=== PATIENT | female | born 1975 | race Caucasian/White ===

== ENCOUNTER → 2016-05-20 | Outpatient (REF) | payer BC ==
[2016-05-20 11:24] LABS: MEAN CORPUSCULAR HEMOGLOBIN 27.5 pg (27.0-33.0); MEAN CORPUSCULAR HGB CONC 30.9 g/dl (32.0-36.5); RED CELL DISTRIBUTION WIDTH 14.9 % (11.5-14.5); WHITE BLOOD COUNT 3.8 K/mm3 (4.0-10.0)
[2016-05-20 11:55] LABS: CONTROL LINE INT CTR LINE PRESENT; HIV SCRN NEGATIVE (NEGATIVE); HIV SCRN1 NEGATIVE (NEGATIVE)
== END ==
LOC: M SFHCLERA 08:57
PROVIDERS: ATTEND Physician Assistant
DX: D50.9 Iron deficiency anemia, unspecified (principal); Z20.9 Contact with and (suspected) exposure to unspecified communicable disease; E03.9 Hypothyroidism, unspecified

== ENCOUNTER 2016-05-23 07:52 | Emergency (ER) | payer OTHER, BC ==
[2016-05-23] MEDS ORDERED: TETRACAINE 0.5% OPHTH SOLN 4ML As Ordered ONE (08:07)
[2016-05-23] MEDS ORDERED: ERYTHROMYCIN OPHTH OINT As Ordered ONE (08:16)
--- NOTE | 2016-05-23 08:25 | EDDOCDS ---
Nurse's Notes [facility] Name: Adela Valladares Age: 41 yrs Sex: Female : 1975 Arrival Date: 05/23/2016 Time: 07:52 Bed Triage 1 Private MD: Diagnosis: Conjunctivitis-chemical conjunctivitis right eye, Purell exposure Presentation: 05/23 07:55 Presenting complaint: Patient states: got purell in right eye. did rinse for about 15 srm mins. incident occurred 20 mins ago. has had it closed due to burning. Adult Sepsis Screening: The patient does not have new or worsening altered mentation. Patient's respiratory rate is less than 22. Systolic blood pressure is greater than 100. Patient has a qSOFA score of 0- Negative Sepsis Screen. Suicide/Homicide risk assessment- the patient denies having any suicidal and/or homicidal ideations and does not present with any other emotional, behavioral or mental health complaints. 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 Transition of care: patient was not received from another setting of care. 07:55 Acuity: GRETA Level 4 srm 07:55 Method Of Arrival: Walkin/Carried/Asstd [facility] Triage Assessment: 07:57 General: Appears uncomfortable, Behavior is crying. Pain: Pain currently is 9 out of 10 srm on a pain scale. 07:57 HIV screening NA for this visit Offered previously. 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 levothyroxine 137 mcg Oral tab 1 tab once daily - PMHx: Thyroid problem; - PSHx: Tonsillectomy; Adenoidectomy; Carpal Tunnel Repair- Bilateral; Gastric Bypass; bladder lift; Hysterectomy; Tubal ligation; - Social history: Smoking status: Patient states was never smoker of tobacco. No barriers to communication noted, The patient speaks fluent Canadian, Speaks appropriately for age. - Family history: Not pertinent. - : The pt / caregiver states he / she is not on anticoagulants. Home medication list is obtained from the patient. - Exposure Risk Screening:: None identified. Screenin:14 Screening information is obtained from the patient. Fall risk: No risks identified. srm Assistance ADL's: requires no assistance with activities of daily living. Abuse/DV Screen: The patient / caregiver reports he/she is: not in a situation that causes fear, pain or injury. Nutritional screening: No deficits noted. Advance Directives: Currently, there is no health care proxy. There is no active DNR order. home support is adequate. Assessment: 08:14 General: Appears uncomfortable, Behavior is appropriate for age, cooperative, crying. srm EENT: Sclera/Cornea are reddened in outer aspect of conjuctiva of right eye, iris of right eye and inner aspect of conjuctiva of right eye. Respiratory: No deficits noted. GI: No deficits noted. Vital Signs: 07:57 BP 133 / 72; Pulse 75; Resp 20; Temp 96.6; Pulse Ox 99% on R/A; Weight 68.04 kg (R); srm Height 5 ft. 2 in. (157.48 cm) (R); 07:57 Body Mass Index 27.44 (68.04 kg, 157.48 cm) [facility] Vitals: 07:57 Log In Time: May 23, 2016 at 07:54. srm Visual Acuity: 08:14 Left Eye Visual acuity 20/20, ; Right Eye Visual acuity 20/50, ; Both Eyes Visual srm acuity 20/25; Without Lenses; ED Course: 07:53 Patient visited by Ashley Tolliver Reg. hs2 07:53 Patient moved to Waiting hs2 07:56 Triage Initiated srm 07:59 Anni Miguel PA-C is PHCP. dt4 07:59 Raissa Simmons MD is Attending Physician. dt4 07:59 Patient visited by Anni Miguel PA-C. dt4 07:59 Patient moved to Triage 1 srm 08:04 Poison Control notified at 08:04 recommendations reviewed with irrigation for 15 pml minutes is sufficient. tetracaine not contraindicated. no significant adverse reactions to exposure. 08:14 [facility] is Referral Physician. dt4 08:15 Patient visited by Jordana Grande RN. srm 08:23 The patient / caregiver is instructed regarding the plan of care and ED course. Patient srm has correct armband on for positive identification. 08:23 No IV's were initiated during this patient's visit. No procedures done that require srm assistance. Administered Medications: 08:09 Drug: Tetracaine (PF) 2 drps [tetracaine HCl (PF) 0.5 % eye drops (2 drps)] {Note: srm administered by PA.} Route: Ophthalmic; Site: right eye; 08:20 Drug: erythromycin 0.5 inches [erythromycin 5 mg/gram (0.5 %) eye ointment (0.5 srm inches)] Route: Ophthalmic; Site: right eye; Order Results: There are currently no results for this order. Outcome: 08:16 Discharge ordered by Provider. dt4 08:23 Discharge Assessment: Patient awake, alert and oriented x 3. No cognitive and/or srm functional deficits noted. Patient verbalized understanding of disposition instructions. patient administered narcotics - no. The following High Risk Discharge criteria are identified: None. Discharged to home ambulatory. Condition: good Condition: stable. Discharge instructions given to patient, Instructed on discharge instructions, follow up and referral plans. medication usage, Demonstrated understanding of instructions, medications, Pt was receptive of discharge instructions/ teaching. Prescriptions given X 1, Work note provided to patient. No special radiology studies were completed. Property sent home with patient. 08:23 Patient left the ED. srm Signatures: Jordana Grande, RN RN Leeanna Cross RN RN pml Tschudi, Diane, PA-C PAAdrian dt4 Ashley Tolliver, Reg Reg hs2 MTDCarmelita
--- NOTE | 2016-05-23 08:25 | EDDOCDS ---
Physician Documentation [facility] Name: Adela Valladares Age: 41 yrs Sex: Female : 1975 Arrival Date: 05/23/2016 Time: 07:52 Bed Triage 1 Private MD: Disposition: 05/23/16 08:16 Discharged to Home/Self Care. Impression: Conjunctivitis - chemical conjunctivitis right eye, Purell exposure. - Condition is Stable. - Discharge Instructions: Conjunctivitis, Chemical. - Prescriptions for Erythromycin 5 mg/gram (0.5 %) Ophthalmic Ointment - apply 1 centimeter by OPHTHALMIC route 2-3 times daily for 7 days; 1 tube. - Medication Reconciliation, Local Pharmacy Hours, Work Release Form - 1 day form. - Follow up: Emergency Department; When: As needed; Reason: Worsening of conditions. Follow [facility]: [facility]; When: Call to arrange an appointment; Reason: Recheck today's complaints, Continuance of care, To establish care. - Problem is new. - Symptoms have improved. Historical: - Allergies: no known allergies; - Home Meds: 1. levothyroxine 137 mcg Oral tab 1 tab once daily - PMHx: Thyroid problem; - PSHx: Tonsillectomy; Adenoidectomy; Carpal Tunnel Repair- Bilateral; Gastric Bypass; bladder lift; Hysterectomy; Tubal ligation; - Social history: Smoking status: Patient states was never smoker of tobacco. No barriers to communication noted, The patient speaks fluent Azeri, Speaks appropriately for age. - Family history: Not pertinent. - : The pt / caregiver states he / she is not on anticoagulants. Home medication list is obtained from the patient. - Exposure Risk Screening:: None identified. 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 2 in. (157.48 cm) (R); 07:57 Body Mass Index 27.44 (68.04 kg, 157.48 cm) srm Visual Acuity: 08:14 Left Eye Visual acuity 20/20, ; Right Eye Visual acuity 20/50, ; Both Eyes Visual srm acuity 20/25; Without Lenses; MDM: 08:04 Financial registration complete. lg 08:05 Tetracaine (PF) Drops 0.5 % 2 drps Ophthalmic once ordered. dt4 08:14 Visual Acuity ordered. dt4 08:14 erythromycin Ointment 0.5 inches Ophthalmic once; to right eye now, thank you. ordered. dt4 Administered Medications: 08:09 Drug: Tetracaine (PF) 2 drps [tetracaine HCl (PF) 0.5 % eye drops (2 drps)] {Note: srm administered by PA.} Route: Ophthalmic; Site: right eye; 08:20 Drug: erythromycin 0.5 inches [erythromycin 5 mg/gram (0.5 %) eye ointment (0.5 srm inches)] Route: Ophthalmic; Site: right eye; Signatures: Jordana Grande, RN RN [facility] Aden Talbot, Jason Reg Anni Miguel, ZAYDA PRIEST dt4 [facility]ENTERa[facility]rmelita
--- NOTE | 2016-05-25 09:24 | EDDOCDS ---
Physician Documentation [facility] Name: Adela Valladares Age: 41 yrs Sex: Female : 1975 Arrival Date: 05/23/2016 Time: 07:52 Bed Triage 1 Private MD: Disposition: 05/23/16 08:16 Discharged to Home/Self Care. Impression: Conjunctivitis - chemical conjunctivitis right eye, Purell exposure. - Condition is Stable. - Discharge Instructions: Conjunctivitis, Chemical. - Prescriptions for Erythromycin 5 mg/gram (0.5 %) Ophthalmic Ointment - apply 1 centimeter by OPHTHALMIC route 2-3 times daily for 7 days; 1 tube. - Medication Reconciliation, Local Pharmacy Hours, Work Release Form - 1 day form. - Follow up: Emergency Department; When: As needed; Reason: Worsening of conditions. Follow [facility]: [facility]; When: Call to arrange an appointment; Reason: Recheck today's complaints, Continuance of care, To establish care. - Problem is new. - Symptoms have improved. Historical: - Allergies: no known allergies; - Home Meds: 1. levothyroxine 137 mcg Oral tab 1 tab once daily - PMHx: Thyroid problem; - PSHx: Tonsillectomy; Adenoidectomy; Carpal Tunnel Repair- Bilateral; Gastric Bypass; bladder lift; Hysterectomy; Tubal ligation; - Social history: Smoking status: Patient states was never smoker of tobacco. No barriers to communication noted, The patient speaks fluent Divehi, Speaks appropriately for age. - Family history: Not pertinent. - : The pt / caregiver states he / she is not on anticoagulants. Home medication list is obtained from the patient. - Exposure Risk Screening:: None identified. 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 2 in. (157.48 cm) (R); 07:57 Body Mass Index 27.44 (68.04 kg, 157.48 cm) srm Visual Acuity: 08:14 Left Eye Visual acuity 20/20, ; Right Eye Visual acuity 20/50, ; Both Eyes Visual srm acuity 20/25; Without Lenses; MDM: 08:04 Financial registration complete. lg 08:05 Tetracaine (PF) Drops 0.5 % 2 drps Ophthalmic once ordered. dt4 08:14 Visual Acuity ordered. dt4 08:14 erythromycin Ointment 0.5 inches Ophthalmic once; to right eye now, thank you. ordered. dt4 08:47 [facility] Payment Agreement was scanned into [employer] and attached to record. lg 13:31 T-Sheet-- Draft Copy was scanned into [employer] and attached to record. gb Administered Medications: 08:09 Drug: Tetracaine (PF) 2 drps [tetracaine HCl (PF) 0.5 % eye drops (2 drps)] {Note: srm administered by PA.} Route: Ophthalmic; Site: right eye; 08:20 Drug: erythromycin 0.5 inches [erythromycin 5 mg/gram (0.5 %) eye ointment (0.5 srm inches)] Route: Ophthalmic; Site: right eye; Signatures: Jordana Grande RN RN srm Kailyn Desai, Reg Reg gb Aden Talbot, Reg Reg lg Anni Miguel, ZAYDA PAAdrian dt4 The chart was reviewed and I authenticate all verbal orders and agree with the evaluation and treatment provided.Attachments: 08:47 [facility] Payment Agreement lg 13:31 T-Sheet-- Draft Copy gb Chart Complete MTDD
--- NOTE | 2016-05-25 09:24 | EDDOCDS ---
Nurse's Notes [facility] Name: Adela Valladares Age: 41 yrs Sex: Female : 1975 Arrival Date: 05/23/2016 Time: 07:52 Bed Triage 1 Private MD: Diagnosis: Conjunctivitis-chemical conjunctivitis right eye, Purell exposure Presentation: 05/23 07:55 Presenting complaint: Patient states: got purell in right eye. did rinse for about 15 srm mins. incident occurred 20 mins ago. has had it closed due to burning. Adult Sepsis Screening: The patient does not have new or worsening altered mentation. Patient's respiratory rate is less than 22. Systolic blood pressure is greater than 100. Patient has a qSOFA score of 0- Negative Sepsis Screen. Suicide/Homicide risk assessment- the patient denies having any suicidal and/or homicidal ideations and does not present with any other emotional, behavioral or mental health complaints. 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 Transition of care: patient was not received from another setting of care. 07:55 Acuity: GRETA Level 4 srm 07:55 Method Of Arrival: Walkin/Carried/Asstd [facility] Triage Assessment: 07:57 General: Appears uncomfortable, Behavior is crying. Pain: Pain currently is 9 out of 10 srm on a pain scale. 07:57 HIV screening NA for this visit Offered previously. 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 levothyroxine 137 mcg Oral tab 1 tab once daily - PMHx: Thyroid problem; - PSHx: Tonsillectomy; Adenoidectomy; Carpal Tunnel Repair- Bilateral; Gastric Bypass; bladder lift; Hysterectomy; Tubal ligation; - Social history: Smoking status: Patient states was never smoker of tobacco. No barriers to communication noted, The patient speaks fluent Polish, Speaks appropriately for age. - Family history: Not pertinent. - : The pt / caregiver states he / she is not on anticoagulants. Home medication list is obtained from the patient. - Exposure Risk Screening:: None identified. Screenin:14 Screening information is obtained from the patient. Fall risk: No risks identified. srm Assistance ADL's: requires no assistance with activities of daily living. Abuse/DV Screen: The patient / caregiver reports he/she is: not in a situation that causes fear, pain or injury. Nutritional screening: No deficits noted. Advance Directives: Currently, there is no health care proxy. There is no active DNR order. home support is adequate. Assessment: 08:14 General: Appears uncomfortable, Behavior is appropriate for age, cooperative, crying. srm EENT: Sclera/Cornea are reddened in outer aspect of conjuctiva of right eye, iris of right eye and inner aspect of conjuctiva of right eye. Respiratory: No deficits noted. GI: No deficits noted. Vital Signs: 07:57 BP 133 / 72; Pulse 75; Resp 20; Temp 96.6; Pulse Ox 99% on R/A; Weight 68.04 kg (R); srm Height 5 ft. 2 in. (157.48 cm) (R); 07:57 Body Mass Index 27.44 (68.04 kg, 157.48 cm) srm Vitals: 07:57 Log In Time: May 23, 2016 at 07:54. srm Visual Acuity: 08:14 Left Eye Visual acuity 20/20, ; Right Eye Visual acuity 20/50, ; Both Eyes Visual srm acuity 20/25; Without Lenses; ED Course: 07:53 Patient visited by Ashley Tolliver Reg. hs2 07:53 Patient moved to Waiting hs2 07:56 Triage Initiated srm 07:59 Anni Miguel [facility]-C [facility] dt4 07:59 Raissa Simmons MD is Attending Physician. dt4 07:59 Patient visited by Anni Miguel PA-C. dt4 07:59 Patient moved to Triage 1 srm 08:04 Poison Control notified at 08:04 recommendations reviewed with irrigation for 15 pml minutes is sufficient. tetracaine not contraindicated. no significant adverse reactions to exposure. 08:14 [facility] is Referral Physician. dt4 08:15 Patient visited by Jordana Grande RN. srm 08:23 The patient / caregiver is instructed regarding the plan of care and ED course. Patient srm has correct armband on for positive identification. 08:23 No IV's were initiated during this patient's visit. No procedures done that require srm assistance. 08:47 [facility] Payment Agreement was scanned into [employer] and attached to record. lg 13:31 T-Sheet-- Draft Copy was scanned into [employer] and attached to record. gb Administered Medications: 08:09 Drug: Tetracaine (PF) 2 drps [tetracaine HCl (PF) 0.5 % eye drops (2 drps)] {Note: srm administered by PA.} Route: Ophthalmic; Site: right eye; 08:20 Drug: erythromycin 0.5 inches [erythromycin 5 mg/gram (0.5 %) eye ointment (0.5 srm inches)] Route: Ophthalmic; Site: right eye; Order Results: There are currently no results for this order. Outcome: 08:16 Discharge ordered by Provider. dt4 08:23 Discharge Assessment: Patient awake, alert and oriented x 3. No cognitive and/or srm functional deficits noted. Patient verbalized understanding of disposition instructions. patient administered narcotics - no. The following High Risk Discharge criteria are identified: None. Discharged to home ambulatory. Condition: good Condition: stable. Discharge instructions given to patient, Instructed on discharge instructions, follow up and referral plans. medication usage, Demonstrated understanding of instructions, medications, Pt was receptive of discharge instructions/ teaching. Prescriptions given X 1, Work note provided to patient. No special radiology studies were completed. Property sent home with patient. 08:23 Patient left the ED. srm Signatures: Jordana Grande, ELIZABETH JOHNSON [facility] Kailyn Desai, Reg Reg gb Aden Talbot, Reg Reg lg Leeanna Rivero RN RN pml Tschudi, Diane, PA-C PA-C dt4 Ashley Tolliver, Reg Reg hs2 Chart Complete MTDD
--- NOTE | 2016-05-25 09:24 | EDDOCDS ---
Physician Documentation [facility] Name: Adela Valladares Age: 41 yrs Sex: Female : 1975 Arrival Date: 05/23/2016 Time: 07:52 Bed Triage 1 Private MD: Disposition: 05/23/16 08:16 Discharged to Home/Self Care. Impression: Conjunctivitis - chemical conjunctivitis right eye, Purell exposure. - Condition is Stable. - Discharge Instructions: Conjunctivitis, Chemical. - Prescriptions for Erythromycin 5 mg/gram (0.5 %) Ophthalmic Ointment - apply 1 centimeter by OPHTHALMIC route 2-3 times daily for 7 days; 1 tube. - Medication Reconciliation, Local Pharmacy Hours, Work Release Form - 1 day form. - Follow up: Emergency Department; When: As needed; Reason: Worsening of conditions. Follow [facility]: [facility]; When: Call to arrange an appointment; Reason: Recheck today's complaints, Continuance of care, To establish care. - Problem is new. - Symptoms have improved. Historical: - Allergies: no known allergies; - Home Meds: 1. levothyroxine 137 mcg Oral tab 1 tab once daily - PMHx: Thyroid problem; - PSHx: Tonsillectomy; Adenoidectomy; Carpal Tunnel Repair- Bilateral; Gastric Bypass; bladder lift; Hysterectomy; Tubal ligation; - Social history: Smoking status: Patient states was never smoker of tobacco. No barriers to communication noted, The patient speaks fluent Greenlandic, Speaks appropriately for age. - Family history: Not pertinent. - : The pt / caregiver states he / she is not on anticoagulants. Home medication list is obtained from the patient. - Exposure Risk Screening:: None identified. 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 2 in. (157.48 cm) (R); 07:57 Body Mass Index 27.44 (68.04 kg, 157.48 cm) srm Visual Acuity: 08:14 Left Eye Visual acuity 20/20, ; Right Eye Visual acuity 20/50, ; Both Eyes Visual srm acuity 20/25; Without Lenses; MDM: 08:04 Financial registration complete. lg 08:05 Tetracaine (PF) Drops 0.5 % 2 drps Ophthalmic once ordered. dt4 08:14 Visual Acuity ordered. dt4 08:14 erythromycin Ointment 0.5 inches Ophthalmic once; to right eye now, thank you. ordered. dt4 08:47 [facility] Payment Agreement was scanned into [employer] and attached to record. lg 13:31 T-Sheet-- Draft Copy was scanned into [employer] and attached to record. gb Administered Medications: 08:09 Drug: Tetracaine (PF) 2 drps [tetracaine HCl (PF) 0.5 % eye drops (2 drps)] {Note: srm administered by PA.} Route: Ophthalmic; Site: right eye; 08:20 Drug: erythromycin 0.5 inches [erythromycin 5 mg/gram (0.5 %) eye ointment (0.5 srm inches)] Route: Ophthalmic; Site: right eye; Signatures: Jordana Grande RN RN srm Kailyn Desai, Reg Reg gb Aden Talbot, Reg Reg lg Anni Miguel, ZAYDA PAAdrian dt4 The chart was reviewed and I authenticate all verbal orders and agree with the evaluation and treatment provided.Attachments: 08:47 [facility] Payment Agreement lg 13:31 T-Sheet-- Draft Copy gb Chart Complete MTDD
== END 2016-05-23 08:23 | disposition home or self-care (01) ==
LOC: M ED 07:52
DX: H10.211 Acute toxic conjunctivitis, right eye (principal); T51.8X1A Toxic effect of other alcohols, accidental (unintentional), initial encounter; Y99.0 Civilian activity done for income or pay; Y93.9 Activity, unspecified; Y92.9 Unspecified place or not applicable; E07.9 Disorder of thyroid, unspecified; Z98.84 Bariatric surgery status; Z79.899 Other long term (current) drug therapy

== ENCOUNTER 2017-01-04 12:08 | Emergency (ER) | payer BC, OTHER ==
[~2017-01-04] VITALS: Ht 157.5 cm; Wt 63.6 kg
[2017-01-04] MEDS ORDERED: LEVO137T14 PO (12:21)
[2017-01-04] MEDS ORDERED: NS 1,000 ML IV ONE (12:45)
[2017-01-04 13:11] LABS: BASO % 0.6 % (0.0-1.0); EOS # 0.1 K/mm3 (0.0-0.50); EOS % 2.3 % (0.0-3.0); LARGE UNSTAINED CELL # 0.2 K/mm3 (0.0-0.4); LARGE UNSTAINED CELL % 2.5 % (0.0-4.0); LYMPH # 1.8 K/mm3 (1.5-4.5); LYMPH % 30.9 % (24.0-44.0); MEAN CORPUSCULAR HEMOGLOBIN 24.3 pg (27.0-33.0); MEAN CORPUSCULAR HGB CONC 30.6 g/dl (32.0-36.5); MEAN CORPUSCULAR VOLUME 79.6 fl (80.0-96.0); MONO # 0.4 K/mm3 (0.0-0.8); MONO % 6.4 % (0.0-5.0); NEUTROPHILS # 3.4 K/mm3 (1.8-7.7); NEUTROPHILS % 57.3 % (36.0-66.0); PLATELET COUNT, AUTOMATED 392 k/mm3 (150-450); RED CELL DISTRIBUTION WIDTH 16.8 % (11.5-14.5); WHITE BLOOD COUNT 5.9 K/mm3 (4.0-10.0)
[2017-01-04 13:30] LABS: ALBUMIN 3.3 GM/DL (3.2-5.2); ALBUMIN/GLOBULIN RATIO 0.89 (1.00-1.93); ALKALINE PHOSPHATASE 48 U/L (45-117); ALT/SGPT 29 U/L (12-78); AMYLASE 91 U/L (25-115); ANION GAP 7 MEQ/L (8-16); AST/SGOT 31 U/L (15-37); BILIRUBIN,DIRECT < 0.1 MG/DL (0.0-0.2); BILIRUBIN,TOTAL 0.3 MG/DL (0.2-1.0); BLOOD UREA NITROGEN 12 MG/DL (7-18); CALCIUM LEVEL 9.3 MG/DL (8.5-10.1); CARBON DIOXIDE LEVEL 28 MEQ/L (21-32); CHLORIDE LEVEL 106 MEQ/L (98-107); CREATININE FOR GFR 0.78 MG/DL (0.55-1.02); GLOMERULAR FILTRATION RATE > 60.0 (>58); GLUCOSE, FASTING 88 MG/DL (70-105); SODIUM LEVEL 141 MEQ/L (136-145)
[2017-01-04] MEDS ORDERED: ISOVUE-370 76% 100ML VIAL (Q9967) As Ordered ONE (13:47)
--- NOTE | 2017-01-04 14:29 | REP ---
Clinical: Left-sided abdominal pain and hematochezia. Technique: Axial contrast enhanced images from the lung bases to the pubic symphysis using 100 ml Isovue 370 intravenous contrast material with coronal and sagittal re-formations. Findings: Lung bases are clear. Liver, pancreas, collapsed gallbladder, bilateral adrenal glands and kidneys appear normal. The spleen has a subtle diffuse micronodular appearance with small sub centimeter hypodense nodules/cysts. Findings are nonspecific and require correlation to exclude infectious process versus other. The enteric system demonstrates mild/moderate diffuse fecal stasis without obstruction or obvious acute inflammatory process. There is evidence for prior gastric bypass surgery. Pelvis demonstrates normal bladder and evidence for prior hysterectomy. No ascites. No free air. No obvious adenopathy. Abdominal aorta and and vasculature appears grossly normal. Musculoskeletal structures demonstrate degenerative change at the L5-S1 level. Impression: 1. Spleen demonstrates innumerable sub centimeter hypodense lesions scattered throughout the parenchyma of uncertain etiology. Differential diagnosis includes but is not limited to infectious processes, hematological disease, sarcoidosis and less likely metastases. Correlation is recommended. 2. Mild to moderate fecal stasis without obvious acute enteric process. 3. Degenerative changes at the L5-S1 level. Signed by Florencio Arias MD 01/04/2017 02:21 P
[2017-01-04 14:43] VITALS: BP 119/58
--- NOTE | 2017-01-05 07:04 | ED PDOC ---
Post-Departure Follow-Up radiology report faxed to Raissa Sepulveda MD Jan 05, 2017 07:04
[2017-02-28] MEDS ORDERED: MOBI4TAB PO (16:05)
== END 2017-01-04 14:51 | disposition home or self-care (01) ==
LOC: M ED 12:08
DX: K62.5 Hemorrhage of anus and rectum (principal); K59.00 Constipation, unspecified; D73.89 Other diseases of spleen; R19.7 Diarrhea, unspecified; E07.9 Disorder of thyroid, unspecified; Z98.84 Bariatric surgery status; Z79.899 Other long term (current) drug therapy
CPT/HCPCS: 74177; 80048; 80076; 81001; 82150; 83690; 85025; 99283; Q9967

== ENCOUNTER 2017-06-26 09:20 | Day surgery (SDC) | payer OTHER, BC ==
[~2017-06-26 09:20] MED LIST: LIDOCAINE W/EPINEPHRINE 1% 20ML VIAL As Ordered
[2017-06-26] MEDS: NS 1,000 ML IV (11:19)
[2017-06-26] MEDS ORDERED: PROPOFOL 200 MG/20 ML VIAL As Ordered (12:11)
== END 2017-06-26 13:26 | disposition home or self-care (01) ==
LOC: M OPP 09:20
DX: K62.5 Hemorrhage of anus and rectum (principal); K62.1 Rectal polyp; K57.30 Diverticulosis of large intestine without perforation or abscess without bleeding; K64.8 Other hemorrhoids; E03.9 Hypothyroidism, unspecified; K59.00 Constipation, unspecified; R19.7 Diarrhea, unspecified; R10.9 Unspecified abdominal pain; Z98.84 Bariatric surgery status; Z79.899 Other long term (current) drug therapy; Z80.0 Family history of malignant neoplasm of digestive organs; Z80.42 Family history of malignant neoplasm of prostate; Z80.3 Family history of malignant neoplasm of breast
CPT/HCPCS: 45380

== ENCOUNTER → 2017-10-02 | Outpatient (REF) | payer OTHER ==
[2017-10-02 20:26] LABS: HEMOGLOBIN 11.7 g/dl (12.0-15.5); MEAN CORPUSCULAR HEMOGLOBIN 27.9 pg (27.0-33.0); MEAN CORPUSCULAR HGB CONC 31.6 g/dl (32.0-36.5); MEAN CORPUSCULAR VOLUME 88.3 fl (80.0-96.0); PLATELET COUNT, AUTOMATED 376 10^3/uL (150-450); RED BLOOD COUNT 4.19 10^6/uL (4.00-5.40); RED CELL DISTRIBUTION WIDTH 17.6 % (11.5-14.5); WHITE BLOOD COUNT 7.7 10^3/uL (4.0-10.0)
[2017-10-02 20:49] LABS: FERRITIN 7 NG/ML (8-252)
== END ==
LOC: M SFHCLERA 16:35
DX: D50.9 Iron deficiency anemia, unspecified (principal); E03.9 Hypothyroidism, unspecified

== ENCOUNTER → 2018-11-03 | Outpatient (REF) | payer OTHER ==
[~2018-11-03] MED LIST changes: +COLA100C5 PO; +LEVO137T14 PO; -LIDOCAINE W/EPINEPHRINE 1% 20ML VIAL As Ordered; +MOBI4TAB PO; +MULT1TAB10 PO
[2018-11-03 13:00] LABS: PERCENT SATURATION 9.5 % (13.2-45.0)
[2018-11-03 13:08] LABS: TOTAL 25(OH) VITAMIN D 29.8 NG/ML (30.0-100.0)
== END ==
LOC: M LAB REF 12:30
PROVIDERS: ATTEND Nurse Practitioner Adult Health
DX: Z98.84 Bariatric surgery status (principal)

== ENCOUNTER 2020-05-18 14:06 | Outpatient (CLI) | payer BC, OTHER ==
[~2020-05-18] VITALS: Ht 157.5 cm; Wt 65.0 kg
[2020-05-18 14:10] VITALS: BP 127/60
[2020-05-18] MEDS ORDERED: FERRIC CARBOXYMALTOSE INJ 750 MG, VIAL MATE ADAPTER 1 EACH in NS 250 ML IV ONE (14:30)
[2020-05-18] MEDS ORDERED: LEVO150T7 PO (14:38)
[2020-05-18] MEDS ORDERED: PANT40TA29 PO (14:39)
[2020-05-18] MEDS ORDERED: GABA-282 PO (14:39)
[2020-05-18] MEDS ORDERED: D-101000 PO (14:42)
[2020-05-18] MEDS ORDERED: CALCTAB89 PO (14:42)
[2020-05-18 15:15] VITALS: BP 92/56
[2020-05-18 16:15] VITALS: BP 97/55
[2020-05-18 16:59] VITALS: BP 108/67
[2020-05-18 17:25] VITALS: BP 89/53
== END 2020-05-18 17:25 | disposition home or self-care (01) ==
LOC: M INFU 14:06
PROVIDERS: ATTEND Family Medicine
DX: D50.9 Iron deficiency anemia, unspecified (principal); Z98.84 Bariatric surgery status
CPT/HCPCS: 96365; 96366; J1439

== ENCOUNTER 2020-05-25 11:55 | Outpatient (CLI) | payer BC, OTHER ==
[~2020-05-25] VITALS: Ht 157.5 cm; Wt 65.0 kg
[~2020-05-25 11:55] MED LIST changes: +CALCTAB89 PO; +D-101000 PO; +GABA-282 PO; +LEVO150T7 PO; +PANT40TA29 PO
[2020-05-25] MEDS ORDERED: FERRIC CARBOXYMALTOSE INJ 750 MG in NS 250 ML IV ONE (12:00)
[2020-05-25 12:18] VITALS: BP 102/52
[2020-05-25 13:30] VITALS: BP 99/60
[2020-05-25 13:45] VITALS: BP 104/56
== END 2020-05-25 13:45 | disposition home or self-care (01) ==
LOC: M INFU 11:55
PROVIDERS: ATTEND Family Medicine
DX: D50.9 Iron deficiency anemia, unspecified (principal); Z98.84 Bariatric surgery status
CPT/HCPCS: 96365; J1439

== ENCOUNTER → 2020-06-10 | Outpatient (CLI) | payer BC, OTHER ==
[~2020-06-10] MED LIST changes: +CARA1TAB6 PO; +VITMTA PO
== END ==
LOC: M LABSMTC 08:52
PROVIDERS: ATTEND Anesthesiology
DX: Z01.812 Encounter for preprocedural laboratory examination (principal); Z20.822 Contact with and (suspected) exposure to COVID-19

== ENCOUNTER 2020-06-15 10:45 | Day surgery (SDC) | payer BC, OTHER ==
[~2020-06-15] VITALS: Ht 157.5 cm; Wt 69.9 kg
[~2020-06-15 10:45] MED LIST changes: +LIDOCAINE 2% 100MG/5ML SDV (FOR ANES.) As Ordered ONE; +NS 1,000 ML IV ONE; +fentaNYL 100 MCG/2 ML INJECTION (J3010) As Ordered ONE; +propofoL 200 MG/20 ML VIAL As Ordered ONE
--- OUTSIDE RECORDS SUMMARY | 2020-06-15 10:49 | CCD | Continuity of Care Document ---
Author Author Monico PRICE DKlever Organization Unknown Address [address] [place] [address] Phone [phone] Care Team Providers Care Band Singer Name Role Phone Hoda Price D.O. AUTM Problems Active Problems Provider Date Hypothyroidism MAIRA Caruso Onset: 10/18/2019 Anemia MAIRA Caruso Onset: 10/18/2019 Diverticulitis MAIRA Caruso Onset: 10/18/2019 Bariatric operative procedure MAIRA Caruso Onset: Social History Type Date Description Comments Sex Unknown ETOH Use Currently consumes alcohol 4-6 b eers a week Tobacco Use Start: Unknown Patient has never smoked Recreational Drug Use Denies Drug Use Smoking Status Reviewed: 04/18/20 Patient has never smoked Exercise Type/Frequency Exercises regularly 3x w [place], treadclimber Sun Exposure Uses sunscreen Seat Belt/Car Seat Always uses seat belt Allergies, Adverse Reactions, Alerts Description No Known Drug Allergies Medications Active Medications SIG Qnty Indications Ordering Provide r Date Injectafer 750mg/15ML Solution 750 mg of iron iv x 1 and then repeat in 7 days x1 30ml Z98.84 Hoda Gross D.OJose 05/11/2020 D50.9 Pantoprazole Sodium 40mg Tablets D R 1 by mouth every day 90tabs Hoda Price D.O. 04/18 Levothyroxine Sodium 150mcg Tablet s take one tablet by mouth daily on an empty stomach 90tabs Hoda Price D.O. Gabapentin 300mg Capsules one cap by mouth twice a day Unknown Multivitamin Adult Tablets 1 by mouth every day Unknown Calcium 600 High Potency 600mg Tab lets 1 by mouth once daily Unknown Vitamin D3 125mcg (5000 Ut) Capsul es 1 by mouth every day Unknown Vitamin B12 2500 mcg 1 yab by mouth daily Unkno wn Vitamin C 500mg Tablets 1 by mouth every day Unknown Biotin 5000 5mg Capsules 1 by mouth every day Unknown Fusion/Iron Chewables 65 Fe Unknown Immunizations Description No Information Available Vital Signs Date Vital Result Comment 04/18/2020 8:04am BP Systolic 120 mmHg BP Diastolic 68 mmHg Height 62.5 inches 5'2.50" Weight 155.00 lb BMI (Body Mass Index) 27.9 kg/m2 Heart Rate 79 /min Respiratory Rate 18 /min Body Temperature 97.6 F O2 % BldC Oximetry 97 % [place] Body Weight 110 lb 11/24/2019 9:45am BP Systolic 122 mmHg BP Diastolic 78 mmHg Height 62.5 inches 5'2.50" Weight 155.00 lb BMI (Body Mass Index) 27.9 kg/m2 Heart Rate 70 /min Respiratory Rate 16 /min Body Temperature 98.5 F O2 % BldC Oximetry 97 % [place] Body Weight 110 lb Results Description No Information Available Procedures Description No Information Available Medical Devices Description No Information Available Encounters Type Date Location Provider Dx Diagnosis Office Visit 04/18/2020 8:00a [facility] Vishal Price DJoseOJose Z00.00 Encntr for general adult med ical exam w/o abnormal findings E03.9 Hypothyroidism, unspecified Z98.84 Bariatric surgery status Z13.220 Encounter for screening for lipoid disorders Z13.29 Encounter for screening for oth suspected endocrine disorder Z13.0 Encntr screen for dis of the bld/bld-form org/immun mechnsm K21.9 Gastro-esophageal reflux dis ease without esophagitis R10.812 Left upper quadrant abdomina l tenderness Office Visit 11/24/2019 9:30a [facility] Vishal Price DJoseO. Z01.419 Encntr for obstetrics gyn physician exam (general ) (routine) w/o abn findings Assessments Date Code Description Provider 04/18/2020 Z00.00 Encounter for genera l adult medical examination without abnormal findings Hoda Price D.O. 04/18/2020 E03.9 Hypothyroidism, unspecified Hoda Price D.O. 04/18/2020 Z98.84 Bariatric surgery status Hoda Gross D.O. 04/18/2020 Z13.220 Encounter for screening for lipo id disorders Jeimy LinOJose 04/18/2020 Z13.29 Encounter for screen ing for other suspected endocrine disorder Hoda Price D.O. 04/18/2020 Z13.0 Encounter for screen ing for diseases of the blood and blood- forming organs and certain disorders involving the immune mechanism Jeimy BurgosOJose 04/18/2020 K21.9 Gastro-esophageal reflux disease without esophagitis Hoda Price D.O. 04/18/2020 R10.812 Left upper quadrant abdominal te nderness Hoda Lal D.O. 11/24/2019 Z01.419 Encounter for gyneco logical examination (general) (routine) without abnormal findings Hoda Price D.O. Plan of Treatment Future Appointment(s):* 04/23/2021 8:00 am - Hoda Price D.O. at [facility] 04/18/2020 - Hoda Price D.O.* Z00.00 Encounter for general adult medical examination without abnormal findings* Comments:* Normal wellness exam * Follow up:* yearly for preventative * E03.9 Hypothyroidism, unspecified* Comments:* labs ordered * Z98.84 Bariatric surgery status * Z13.220 Encounter for screening for lipoid disorders * Z13.29 Encounter for screening for other suspected endocrine disorder * Z13.0 Encounter for screening for diseases of the blood and blood-forming organs and certain disorders involving the immune mechanism * K21.9 Gastro-esophageal reflux disease without esophagitis* Comments:* pantroprazole sent * R10.812 Left upper quadrant abdominal tenderness* Comments:* She will follow up with Dr. Lees Functional Status Description No Information Available Mental Status Description No Information Available Referrals Description No Information Available
--- OUTSIDE RECORDS SUMMARY | 2020-06-15 10:49 | CCD | Continuity of Care Document ---
Author Author Monico PRICE D.O. Organization Unknown Address [address] [place] [address] Phone [phone] Care Team Providers Care Green Prize Packer Name Role Phone Hoda Price D.O. AUTM [...] smoked Exercise Type/Frequency Exercises regularly 3x w [place], treadclimber Sun Exposure Uses sunscreen Seat Belt/Car Seat Always uses seat belt Allergies, Adverse Reactions, Alerts Description No Known Drug Allergies Medications Active Medications SIG Qnty Indications Ordering Provide r Date Pantoprazole Sodium 40mg Tablets D R 1 by mouth every day 90tabs Hoda Price D.OJose 04/18 Levothyroxine Sodium 150mcg Tablet s take [...] F O2 % BldC Oximetry 97 % [place] Body Weight 110 lb 11/24/2019 9:45am BP Systolic 122 mmHg BP Diastolic 78 mmHg Height 62.5 inches 5'2.50" Weight 155.00 lb BMI (Body Mass Index) 27.9 kg/m2 Heart Rate 70 /min Respiratory Rate 16 /min Body Temperature 98.5 F O2 % BldC Oximetry 97 % [place] Body Weight 110 lb Results Description No Information Available Procedures Description No Information Available Medical Devices Description No Information Available Encounters Type Date Location Provider Dx Diagnosis Office Visit 04/18/2020 8:00a [facility] Vishal Price D.O. Z00.00 Encntr for general adult med ical exam w/o abnormal findings E03.9 Hypothyroidism, unspecified Z98.84 Bariatric surgery status Z13.220 Encounter for screening for lipoid disorders Z13.29 Encounter for screening for oth suspected endocrine disorder Z13.0 Encntr screen for dis of the bld/bld-form org/immun mechnsm K21.9 Gastro-esophageal reflux dis ease without esophagitis R10.812 Left upper quadrant abdomina l tenderness Office Visit 11/24/2019 9:30a [facility] Vishal Price D.O. 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 04/18/2020 E03.9 Hypothyroidism, unspecified Hoda Price D.O. 04/18/2020 Z98.84 Bariatric surgery status Hoda Gross D.O. 04/18/2020 Z13.220 Encounter for screening for lipo id disorders Hoda Lal D.O. 04/18/2020 Z13.29 Encounter for screen ing for other suspected endocrine disorder Hoda Price D.O. 04/18/2020 Z13.0 Encounter for screen ing for diseases of the blood and blood- forming organs and certain disorders involving the immune mechanism Hoda Price D.O. 04/18/2020 K21.9 Gastro-esophageal reflux disease without esophagitis Hoda Price D.O. 04/18/2020 R10.812 Left upper quadrant abdominal te nderness Hoda Lal D.O. 11/24/2019 Z01.419 Encounter for gyneco logical examination (general) (routine) without abnormal findings Hoda Price D.O. Plan of Treatment Future Appointment(s):* 04/23/2021 8:00 am - Hoda Price D.O. at [facility] 04/18/2020 - Hoda Price D.O.* Z00.00 Encounter for general adult medical examination without abnormal findings* Comments:* Normal wellness exam * Follow up:* yearly for preventative * E03.9 Hypothyroidism, unspecified* New Labs:* FT4&TSH Panel, Ordered: 04/18/20 * Comments:* labs ordered * Z98.84 Bariatric surgery status* New Labs:* Vitamin B12 Level, Ordered: 04/18/20 * Vitamin D 25-Hydroxy, Ordered: 04/18/20 * Total Iron Binding Capacit, Ordered: 04/18/20 * Ferritin, Ordered: 04/18/20 * Z13.220 Encounter for screening for lipoid disorders* New Labs:* Lipid Panel, Ordered: 04/18/20 * Z13.29 Encounter for screening for other suspected endocrine disorder* New Labs:* Comprehensive Metabolic Profil, Ordered: 04/18/20 * Z13.0 Encounter for screening for diseases of the blood and blood-forming organs and certain disorders involving the immune mechanism* New Labs:* CBC With Differential, Ordered: 04/18/20 * K21.9 Gastro-esophageal reflux disease without esophagitis* Comments:* pantroprazole sent * R10.812 Left upper quadrant abdominal tenderness* Comments:* She will follow up with Dr. Lees Functional Status Description No Information Available Mental Status Description No Information Available Referrals Description No Information Available
--- OUTSIDE RECORDS SUMMARY | 2020-06-15 10:49 | CCD | Continuity of Care Document ---
Author Author Monico PRICE D.O. Organization Unknown Address [address] [place] [address] Phone [phone] Care Team Providers Care Knife Glazer Name Role Phone Hoda Price D.O. AUTM [phone] Problems Active Problems Provider Date Hypothyroidism MAIRA [...] smoked Exercise Type/Frequency Exercises regularly 3x w [place], treadclimber Sun Exposure Uses sunscreen Seat Belt/Car [...] F O2 % BldC Oximetry 97 % [place] Body Weight 110 lb 11/24/2019 9:45am BP Systolic 122 mmHg BP Diastolic 78 mmHg Height 62.5 inches 5'2.50" Weight 155.00 lb BMI (Body Mass Index) 27.9 kg/m2 Heart Rate 70 /min Respiratory Rate 16 /min Body Temperature 98.5 F O2 % BldC Oximetry 97 % [place] Body Weight 110 lb Results Description No Information Available Procedures Description No Information Available Medical Devices Description No Information Available Encounters Type Date Location Provider Dx Diagnosis Office Visit 04/18/2020 8:00a [facility] Vishal Price D.O. Z00.00 Encntr for general [...] abdomina l tenderness Office Visit 11/24/2019 9:30a [facility] Vishal Price D.O. 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 at [facility] 04/18/2020 - Hoda Price D.O.* Z00.00 [...]
--- OUTSIDE RECORDS SUMMARY | 2020-06-15 10:49 | CCD | Continuity of Care Document ---
Author Author Monico PRICE DKlever Organization Unknown Address [address] [place] [address] Phone [phone] Care Team Providers Care Still Operator Helper Name Role Phone Hoda Price D.O. AUTM [...] smoked Exercise Type/Frequency Exercises regularly 3x w [place], treadclimber Sun Exposure Uses sunscreen Seat Belt/Car [...] F O2 % BldC Oximetry 97 % [place] Body Weight 110 lb 11/24/2019 9:45am BP Systolic 122 mmHg BP Diastolic 78 mmHg Height 62.5 inches 5'2.50" Weight 155.00 lb BMI (Body Mass Index) 27.9 kg/m2 Heart Rate 70 /min Respiratory Rate 16 /min Body Temperature 98.5 F O2 % BldC Oximetry 97 % [place] Body Weight 110 lb Results Description No Information Available Procedures Description No Information Available Medical Devices Description No Information Available Encounters Type Date Location Provider Dx Diagnosis Office Visit 04/18/2020 8:00a [facility] Vishal Price DJoseOJose Z00.00 Encntr for [...] abdomina l tenderness Office Visit 11/24/2019 9:30a [facility] Vishal Price DJoseO. Z01.419 Encntr for director of maternity services exam (general ) (routine) w/o abn findings [...] 8:00 am - Hoda Price D.O. at [facility] 04/18/2020 - Hoda Price D.O.* Z00.00 Encounter [...]
--- OUTSIDE RECORDS SUMMARY | 2020-06-15 10:50 | CCD ---
Author Author [facility] Organization [facility] Address Unknown Phone Unavailable Care Team Providers Care Pipe Bender Name Role Phone StanleyHill pandyaen PA Unavailable Unavailable Stanley, Beltran PA Unavailable Unavailable Stanley, Beltran PA Unavailable Unavailable Stanley, Beltran PA Unavailable Unavailable Stanley, Beltran PA Unavailable Unavailable Stanley, Beltran PA Unavailable Unavailable Stanley, Beltran PA Unavailable Unavailable Stanley, Beltran PA Unavailable Unavailable Stanley, Beltran PA Unavailable Unavailable Stanley, Beltran PA Unavailable Unavailable Stanley, Beltran PA Unavailable Unavailable Stanley, Beltran PA Unavailable Unavailable Stanley, Beltran PA Unavailable Unavailable Stanley, Beltran PA Unavailable Unavailable Stanley, Beltran PA Unavailable Unavailable Stanley, Beltran PA Unavailable Unavailable Stanley, Beltran PA Unavailable Unavailable Stanley, Beltran PA Unavailable Unavailable Stanley, Beltran PA Unavailable Unavailable Stanley, Beltran PA Unavailable Unavailable Stanley, Beltran PA Unavailable Unavailable Stanley, Beltran PA Unavailable Unavailable Stanley, Beltran PA Unavailable Unavailable Stanley, Beltran PA Unavailable Unavailable Stanley, Beltran PA Unavailable Unavailable Stanley, Beltran PA Unavailable Unavailable Stanley, Beltran PA Unavailable Unavailable Stanley, Beltran PA Unavailable Unavailable Stanley, Beltran PA Unavailable Unavailable Stanley, Beltran PA Unavailable Unavailable Stanley, Beltran PA Unavailable Unavailable Stanley, Beltran PA Unavailable Unavailable Stanley, Beltran PA Unavailable Unavailable Stanley, Beltran PA Unavailable Unavailable Stanley, Beltran PA Unavailable Unavailable Stanley, Beltran PA Unavailable Unavailable Stanley, Beltran PA Unavailable Unavailable Stanley, Beltran PA Unavailable Unavailable Stanley, Beltran PA Unavailable Unavailable Stanley, Beltran PA Unavailable Unavailable Stanley, Beltran PA Unavailable Unavailable Stanley, Beltran PA Unavailable Unavailable Stanley, Beltran PA Unavailable Unavailable Stanley, Beltran PA Unavailable Unavailable Stanley, Beltran PA Unavailable Unavailable Stanley, Beltran PA Unavailable Unavailable Stanley, Beltran PA Unavailable Unavailable Stanley, Beltran PA Unavailable Unavailable Stanley, Beltran PA Unavailable Unavailable Fish, B Beltran GOULD Unavailable Unavailable Fish, B Beltran GOULD Unavailable Unavailable Fish, B Beltran GOULD Unavailable Unavailable Fish, B Beltran GOULD Unavailable Unavailable Fish, B Beltran GOULD Unavailable Unavailable Fish, B Beltran GOULD Unavailable Unavailable Fish, B Beltran GOULD Unavailable Unavailable Fish, B Beltran GOULD Unavailable Unavailable Fish, B Beltran GOULD Unavailable Unavailable Fish, B Beltran GOULD Unavailable Unavailable Fish, B Beltran GOULD Unavailable Unavailable Fish, B Beltran GOULD Unavailable Unavailable Fish, B Beltran GOULD Unavailable Unavailable Fish, B Beltran GOULD Unavailable Unavailable Fish, B Beltran GOULD Unavailable Unavailable Fish, B Beltran GOULD Unavailable Unavailable Fish, B Beltran GOULD Unavailable Unavailable Fish, B Beltran GOULD Unavailable Unavailable Fish, B Beltran GOULD Unavailable Unavailable Fish, B Beltran GOULD Unavailable Unavailable Fish, B Beltran GOULD Unavailable Unavailable Fish, B Beltran GOULD Unavailable Unavailable Fish, B Beltran GOULD Unavailable Unavailable Fish, B Beltran GOULD Unavailable Unavailable Fish, B Beltran GOULD Unavailable Unavailable Fish, B Beltran GOULD Unavailable Unavailable Fish, B Beltran GOULD Unavailable Unavailable Fish, B Beltran GOULD Unavailable Unavailable Fish, B Beltran GOULD Unavailable Unavailable Fish, B Beltran GOULD Unavailable Unavailable Fish, B Beltran GOULD Unavailable Unavailable Fish, B Beltran GOULD Unavailable Unavailable Fish, Brenda Gong MD Unavailable Unavailable Fish, B Beltran GOULD Unavailable Unavailable Fish, B Beltran GOULD Unavailable Unavailable Fish, B Beltran GOULD Unavailable Unavailable Fish, B Beltran GOULD Unavailable Unavailable Fish, B Beltran GOULD Unavailable Unavailable Fish, B Beltran GOULD Unavailable Unavailable Fish, B Beltran GOULD Unavailable Unavailable Fish, B Beltran GOULD Unavailable Unavailable Fish, B Beltran GOULD Unavailable Unavailable Fish, B Beltran GOULD Unavailable Unavailable Fish, B Beltran GOULD Unavailable Unavailable Fish, B Beltran GOULD Unavailable Unavailable Fish, B Beltran GOULD Unavailable Unavailable Fish, B Beltran GOULD Unavailable Unavailable Fish, B Beltran GOULD Unavailable Unavailable Fish, B Beltran GOULD Unavailable Unavailable Fish, B Beltran GOULD Unavailable Unavailable Fish, B Beltran GOULD Unavailable Unavailable Fish, B Beltran GOULD Unavailable Unavailable Fish, B Beltran GOULD Unavailable Unavailable GAIL-AMELIE, EDIE DO Unavailable Unavailable GAIL-AMELIE, EDIE DO Unavailable Unavailable GAIL-AMELIE, EDIE DO Unavailable Unavailable GAIL-AMELIE, EDIE DO Unavailable Unavailable GAIL-AMELIE, EDIE DO Unavailable Unavailable GAIL-AMELIE, EDIE DO Unavailable Unavailable GAIL-AMELIE, EDIE DO Unavailable Unavailable GIAL-AMELIE, EDIE DO Unavailable Unavailable GAIL-AMELIE, EDIE DO Unavailable Unavailable GAIL-AMELIE, EDIE DO Unavailable Unavailable GAIL-AMELIE, EDIE DO Unavailable Unavailable GAIL-AMELIE, EDIE DO Unavailable Unavailable GAIL-AMELIE, EDIE DO Unavailable Unavailable GAIL-AMELIE, EDIE DO Unavailable Unavailable GAIL-AMELIE, EDIE DO Unavailable Unavailable GAIL-AMELIE, EDIE DO Unavailable Unavailable GAIL-AMELIE, EDIE DO Unavailable Unavailable GAIL-AMELIE, EDIE DO Unavailable Unavailable GAIL-AMELIE, EDIE DO Unavailable Unavailable GAIL-AMELIE, EDIE DO Unavailable Unavailable GAIL-AMELIE, EDIE DO Unavailable Unavailable GAIL-AMELIE, EDIE DO Unavailable Unavailable GAIL-AMELIE, EDIE DO Unavailable Unavailable GAIL-AMELIE, EDIE DO Unavailable Unavailable GAIL-AMELIE, EDIE DO Unavailable Unavailable GAIL-AMELIE, EDIE DO Unavailable Unavailable GAIL-AMELIE, EDIE DO Unavailable Unavailable GAIL-AMELIE, EDIE DO Unavailable Unavailable GAIL-AMELIE, EDIE DO Unavailable Unavailable GAIL-AMELIE, EDIE DO Unavailable Unavailable GAIL-AMELIE, EDIE DO Unavailable Unavailable GAIL-AMELIE, EDIE DO Unavailable Unavailable GAIL-AMELIE, EDIE DO Unavailable Unavailable GAIL-AMELIE, EDIE DO Unavailable Unavailable GAIL-AMELIE, EDIE DO Unavailable Unavailable GAIL-AMELIE, EDIE DO Unavailable Unavailable GAIL-AMELIE, EDIE DO Unavailable Unavailable GAIL-AMELIE, EDIE DO Unavailable Unavailable GAIL-AMELIE, EDIE DO Unavailable Unavailable AGIL-AMELIE, EDIE DO Unavailable Unavailable GAIL-AMELIE, EDIE DO Unavailable Unavailable GAIL-AMELIE, EDIE DO Unavailable Unavailable GAIL-AMELIE, EDIE DO Unavailable Unavailable GAIL-AMELIE, EDIE DO Unavailable Unavailable GAIL-AMELIE, EDIE DO Unavailable Unavailable GAIL-AMELIE, EDIE DO Unavailable Unavailable GAIL-AMELIE, EDIE DO Unavailable Unavailable GAIL-AMELIE, EDIE DO Unavailable Unavailable GAIL-AMELIE, EDIE DO Unavailable Unavailable GAIL-AMELIE, EDIE DO Unavailable Unavailable GAIL-AMELIE, EDIE DO Unavailable Unavailable GAIL-AMELIE, EDIE DO Unavailable Unavailable GAIL-AMELIE, EDIE DO Unavailable Unavailable GAIL-AMELIE, EDIE DO Unavailable Unavailable GAIL-AMELIE, EDIE DO Unavailable Unavailable GAIL-AMELIE, EDIE DO Unavailable Unavailable GAIL-AMELIE, EDIE DO Unavailable Unavailable GAIL-AMELIE, EDIE DO Unavailable Unavailable GAIL-AMELIE, EDIE DO Unavailable Unavailable GAIL-AMELIE, EDIE DO Unavailable Unavailable GAIL-AMELIE, EDIE DO Unavailable Unavailable GAIL-AMELIE, EDIE DO Unavailable Unavailable GAIL-AMELIE, EDIE DO Unavailable Unavailable GAIL-AMELIE, EDIE DO Unavailable Unavailable GAIL-AMELIE, EDIE DO Unavailable Unavailable GAIL-AMELIE, EDIE DO Unavailable Unavailable GAIL-AMELIE, EDIE DO Unavailable Unavailable GAIL-AMELIE, EDIE DO Unavailable Unavailable GAIL-AMELIE, EDIE DO Unavailable Unavailable GAIL-AMELIE, EDIE DO Unavailable Unavailable GAIL-AMELIE, EDIE DO Unavailable Unavailable GAIL-AMELIE, EDIE DO Unavailable Unavailable GAIL-AMELIE, EDIE DO Unavailable Unavailable GAIL-AMELIE, EDIE DO Unavailable Unavailable GAIL-AMELIE, EDIE DO Unavailable Unavailable GAIL-AMELEI, EDIE DO Unavailable Unavailable GAIL-AMELIE, EDIE DO Unavailable Unavailable GAIL-AMELIE, EDIE DO Unavailable Unavailable GAIL-AMELIE, EDIE DO Unavailable Unavailable GAIL-AMELIE, EDIE DO Unavailable Unavailable GAIL-AMELIE, EDIE DO Unavailable Unavailable GAIL-AMELIE, EDIE DO Unavailable Unavailable Fish, B Beltran GOULD Unavailable Unavailable Fish, B Beltran GOULD Unavailable Unavailable Fish, B Beltran GOULD Unavailable Unavailable Fish, B Beltran GOULD Unavailable Unavailable Fish, B Beltran GOULD Unavailable Unavailable Fish, B Beltran GOULD Unavailable Unavailable Fish, B Beltran GOULD Unavailable Unavailable Fish, B Beltran GOULD Unavailable Unavailable Fish, B Beltran GOULD Unavailable Unavailable Fish, B Beltran GOULD Unavailable Unavailable Fish, B Beltran GOULD Unavailable Unavailable Fish, B Beltran GOULD Unavailable Unavailable Fish, B Beltran GOULD Unavailable Unavailable Fish, B Beltran GOULD Unavailable Unavailable Fish, B Beltran GOULD Unavailable Unavailable Fish, B Beltran GOULD Unavailable Unavailable Fish, B Beltran GOULD Unavailable Unavailable Fish, B Beltran GOULD Unavailable Unavailable Fish, B Beltran GOULD Unavailable Unavailable Fish, B Beltran GOULD Unavailable Unavailable Fish, B Beltran GOULD Unavailable Unavailable Fish, B Beltran GOULD Unavailable Unavailable Fish, B Beltran GOULD Unavailable Unavailable Fish, B Beltran GOULD Unavailable Unavailable Fish, B Beltran GOULD Unavailable Unavailable Fish, B Beltran GOULD Unavailable Unavailable Fish, B Beltran GOULD Unavailable Unavailable Fish, B Beltran GOULD Unavailable Unavailable Fish, B Beltran GOULD Unavailable Unavailable Fish, B Beltran GOULD Unavailable Unavailable Fish, B Beltran GOULD Unavailable Unavailable Fish, B Beltran GOULD Unavailable Unavailable Fish, B Beltran GOULD Unavailable Unavailable Fish, B Beltran GOULD Unavailable Unavailable Fish, B Belrtan GOULD Unavailable Unavailable Fish, B Beltran GOULD Unavailable Unavailable Fish, B Beltran GOULD Unavailable Unavailable Fish, B Beltran GOULD Unavailable Unavailable Fish, B Beltran GOULD Unavailable Unavailable Fish, B Beltran GOULD Unavailable Unavailable Fish, B Beltran GOULD Unavailable Unavailable Fish, B Beltran GOULD Unavailable Unavailable Fish, B Beltran GOULD Unavailable Unavailable Fish, B Beltran GOULD Unavailable Unavailable Fish, B Beltran GOULD Unavailable Unavailable Fish, B Beltran GOULD Unavailable Unavailable Fish, B Beltran GOULD Unavailable Unavailable Fish, B Beltrna GOULD Unavailable Unavailable Fish, B Beltran GOULD Unavailable Unavailable Fish, B Beltran GOULD Unavailable Unavailable Fish, B Beltran GOULD Unavailable Unavailable Fish, B Beltran GOULD Unavailable Unavailable Fish, B Beltran GOULD Unavailable Unavailable LePine, M Mis LICENSED JOURNEYMAN ELECTRICIAN Unavailable Unavailable LePine, M Mis LICENSED JOURNEYMAN ELECTRICIAN Unavailable Unavailable LePine, M Mis LICENSED JOURNEYMAN ELECTRICIAN Unavailable Unavailable LePine, M Mis LICENSED JOURNEYMAN ELECTRICIAN Unavailable Unavailable LePine, M Mis LICENSED JOURNEYMAN ELECTRICIAN Unavailable Unavailable LePine, M Mis LICENSED JOURNEYMAN ELECTRICIAN Unavailable Unavailable LePine, M Mis LICENSED JOURNEYMAN ELECTRICIAN Unavailable Unavailable LePine, M Mis LICENSED JOURNEYMAN ELECTRICIAN Unavailable Unavailable LePine, M Mis LICENSED JOURNEYMAN ELECTRICIAN Unavailable Unavailable LePine, M Mis LICENSED JOURNEYMAN ELECTRICIAN Unavailable Unavailable LePine, M Mis LICENSED JOURNEYMAN ELECTRICIAN Unavailable Unavailable LePine, M Mis LICENSED JOURNEYMAN ELECTRICIAN Unavailable Unavailable LePine, M Mis LICENSED JOURNEYMAN ELECTRICIAN Unavailable Unavailable LePine, M Mis LICENSED JOURNEYMAN ELECTRICIAN Unavailable Unavailable LePine, M Mis LICENSED JOURNEYMAN ELECTRICIAN Unavailable Unavailable LePine, M Mis LICENSED JOURNEYMAN ELECTRICIAN Unavailable Unavailable LePine, M Mis LICENSED JOURNEYMAN ELECTRICIAN Unavailable Unavailable LePine, M Mis LICENSED JOURNEYMAN ELECTRICIAN Unavailable Unavailable LePine, M Mis LICENSED JOURNEYMAN ELECTRICIAN Unavailable Unavailable LePine, M Mis LICENSED JOURNEYMAN ELECTRICIAN Unavailable Unavailable LePine, M Mis LICENSED JOURNEYMAN ELECTRICIAN Unavailable Unavailable LePine, M Mis LICENSED JOURNEYMAN ELECTRICIAN Unavailable Unavailable LePine, M Mis LICENSED JOURNEYMAN ELECTRICIAN Unavailable Unavailable LePine, M Mis LICENSED JOURNEYMAN ELECTRICIAN Unavailable Unavailable LePine, M Mis LICENSED JOURNEYMAN ELECTRICIAN Unavailable Unavailable LePine, M Mis LICENSED JOURNEYMAN ELECTRICIAN Unavailable Unavailable LePine, M Mis LICENSED JOURNEYMAN ELECTRICIAN Unavailable Unavailable LePine, M Mis LICENSED JOURNEYMAN ELECTRICIAN Unavailable Unavailable LePine, M Mis LICENSED JOURNEYMAN ELECTRICIAN Unavailable Unavailable LePine, M Mis LICENSED JOURNEYMAN ELECTRICIAN Unavailable Unavailable LePine, M Mis LICENSED JOURNEYMAN ELECTRICIAN Unavailable Unavailable LePine, M Mis LICENSED JOURNEYMAN ELECTRICIAN Unavailable Unavailable LePine, M Mis LICENSED JOURNEYMAN ELECTRICIAN Unavailable Unavailable LePine, M Mis LICENSED JOURNEYMAN ELECTRICIAN Unavailable Unavailable LePine, M Mis LICENSED JOURNEYMAN ELECTRICIAN Unavailable Unavailable LePine, M Mis LICENSED JOURNEYMAN ELECTRICIAN Unavailable Unavailable LePine, M Mis LICENSED JOURNEYMAN ELECTRICIAN Unavailable Unavailable LePine, M Mis LICENSED JOURNEYMAN ELECTRICIAN Unavailable Unavailable LePine, M Mis LICENSED JOURNEYMAN ELECTRICIAN Unavailable Unavailable LePine, M Mis LICENSED JOURNEYMAN ELECTRICIAN Unavailable Unavailable LePine, M Mis LICENSED JOURNEYMAN ELECTRICIAN Unavailable Unavailable LePine, M Mis LICENSED JOURNEYMAN ELECTRICIAN Unavailable Unavailable LePine, M Mis LICENSED JOURNEYMAN ELECTRICIAN Unavailable Unavailable LePine, M Mis LICENSED JOURNEYMAN ELECTRICIAN Unavailable Unavailable LePine, M Mis LICENSED JOURNEYMAN ELECTRICIAN Unavailable Unavailable LePine, M Mis LICENSED JOURNEYMAN ELECTRICIAN Unavailable Unavailable LePine, M Mis LICENSED JOURNEYMAN ELECTRICIAN Unavailable Unavailable LePine, M Mis LICENSED JOURNEYMAN ELECTRICIAN Unavailable Unavailable LePine, M Mis LICENSED JOURNEYMAN ELECTRICIAN Unavailable Unavailable LePine, M Mis LICENSED JOURNEYMAN ELECTRICIAN Unavailable Unavailable LePine, M Mis LICENSED JOURNEYMAN ELECTRICIAN Unavailable Unavailable LePine, M Mis LICENSED JOURNEYMAN ELECTRICIAN Unavailable Unavailable LePine, M Mis LICENSED JOURNEYMAN ELECTRICIAN Unavailable Unavailable LePine, M Mis LICENSED JOURNEYMAN ELECTRICIAN Unavailable Unavailable LePine, M Mis LICENSED JOURNEYMAN ELECTRICIAN Unavailable Unavailable LePine, M Mis LICENSED JOURNEYMAN ELECTRICIAN Unavailable Unavailable LePine, M Mis LICENSED JOURNEYMAN ELECTRICIAN Unavailable Unavailable LePine, M Mis LICENSED JOURNEYMAN ELECTRICIAN Unavailable Unavailable LePine, M Mis LICENSED JOURNEYMAN ELECTRICIAN Unavailable Unavailable LePine, M Mis LICENSED JOURNEYMAN ELECTRICIAN Unavailable Unavailable LePine, M Mis LICENSED JOURNEYMAN ELECTRICIAN Unavailable Unavailable LePine, M Mis LICENSED JOURNEYMAN ELECTRICIAN Unavailable Unavailable LePine, M Mis LICENSED JOURNEYMAN ELECTRICIAN Unavailable Unavailable LePine, M Mis LICENSED JOURNEYMAN ELECTRICIAN Unavailable Unavailable LePine, M Mis LICENSED JOURNEYMAN ELECTRICIAN Unavailable Unavailable LePine, M Mis LICENSED JOURNEYMAN ELECTRICIAN Unavailable Unavailable LePine, M Mis LICENSED JOURNEYMAN ELECTRICIAN Unavailable Unavailable LePine, M Mis LICENSED JOURNEYMAN ELECTRICIAN Unavailable Unavailable LePine, M Mis LICENSED JOURNEYMAN ELECTRICIAN Unavailable Unavailable LePine, M Mis LICENSED JOURNEYMAN ELECTRICIAN Unavailable Unavailable LePine, M Mis LICENSED JOURNEYMAN ELECTRICIAN Unavailable Unavailable LePine, M Mis LICENSED JOURNEYMAN ELECTRICIAN Unavailable Unavailable LePine, M Mis LICENSED JOURNEYMAN ELECTRICIAN Unavailable Unavailable LePine, M Mis LICENSED JOURNEYMAN ELECTRICIAN Unavailable Unavailable LePine, M Mis LICENSED JOURNEYMAN ELECTRICIAN Unavailable Unavailable LePine, M Mis LICENSED JOURNEYMAN ELECTRICIAN Unavailable Unavailable LePine, M Mis LICENSED JOURNEYMAN ELECTRICIAN Unavailable Unavailable LePine, M Mis LICENSED JOURNEYMAN ELECTRICIAN Unavailable Unavailable LePine, M Mis LICENSED JOURNEYMAN ELECTRICIAN Unavailable Unavailable LePine, M Mis LICENSED JOURNEYMAN ELECTRICIAN Unavailable Unavailable LePine, M Mis LICENSED JOURNEYMAN ELECTRICIAN Unavailable Unavailable LePine, M Mis LICENSED JOURNEYMAN ELECTRICIAN Unavailable Unavailable LePine, M Mis LICENSED JOURNEYMAN ELECTRICIAN Unavailable Unavailable LePine, M Mis LICENSED JOURNEYMAN ELECTRICIAN Unavailable Unavailable LePine, M Mis LICENSED JOURNEYMAN ELECTRICIAN Unavailable Unavailable LePine, M Mis LICENSED JOURNEYMAN ELECTRICIAN Unavailable Unavailable LePine, M Mis LICENSED JOURNEYMAN ELECTRICIAN Unavailable Unavailable LePine, M Mis LICENSED JOURNEYMAN ELECTRICIAN Unavailable Unavailable LePine, M Mis LICENSED JOURNEYMAN ELECTRICIAN Unavailable Unavailable LePine, M Mis LICENSED JOURNEYMAN ELECTRICIAN Unavailable Unavailable LePine, M Mis LICENSED JOURNEYMAN ELECTRICIAN Unavailable Unavailable LePine, M Mis LICENSED JOURNEYMAN ELECTRICIAN Unavailable Unavailable LePine, M Mis LICENSED JOURNEYMAN ELECTRICIAN Unavailable Unavailable LePine, M Mis LICENSED JOURNEYMAN ELECTRICIAN Unavailable Unavailable LePine, M Mis LICENSED JOURNEYMAN ELECTRICIAN Unavailable Unavailable LePine, M Mis LICENSED JOURNEYMAN ELECTRICIAN Unavailable Unavailable LePine, M Mis LICENSED JOURNEYMAN ELECTRICIAN Unavailable Unavailable LePine, M Mis LICENSED JOURNEYMAN ELECTRICIAN Unavailable Unavailable LePine, M Mis LICENSED JOURNEYMAN ELECTRICIAN Unavailable Unavailable LePine, M Mis LICENSED JOURNEYMAN ELECTRICIAN Unavailable Unavailable LePine, M Mis LICENSED JOURNEYMAN ELECTRICIAN Unavailable Unavailable LePine, M Mis LICENSED JOURNEYMAN ELECTRICIAN Unavailable Unavailable LePine, M Mis LICENSED JOURNEYMAN ELECTRICIAN Unavailable Unavailable LePine, M Mis LICENSED JOURNEYMAN ELECTRICIAN Unavailable Unavailable LePine, M Mis LICENSED JOURNEYMAN ELECTRICIAN Unavailable Unavailable LePine, M Mis LICENSED JOURNEYMAN ELECTRICIAN Unavailable Unavailable LePine, M Mis LICENSED JOURNEYMAN ELECTRICIAN Unavailable Unavailable LePine, M Mis LICENSED JOURNEYMAN ELECTRICIAN Unavailable Unavailable LePine, M Mis LICENSED JOURNEYMAN ELECTRICIAN Unavailable Unavailable LePine, M Mis LICENSED JOURNEYMAN ELECTRICIAN Unavailable Unavailable LePine, M Mis LICENSED JOURNEYMAN ELECTRICIAN Unavailable Unavailable LePine, M Mis LICENSED JOURNEYMAN ELECTRICIAN Unavailable Unavailable Jt ALY MD Unavailable Unavailable Jt ALY MD Unavailable Unavailable Jt ALY MD Unavailable Unavailable Jt ALY MD Unavailable Unavailable Jt ALY MD Unavailable Unavailable Jt ALY MD Unavailable Unavailable Jt ALY MD Unavailable Unavailable Jt ALY MD Unavailable Unavailable Jt ALY MD Unavailable Unavailable Jt ALY MD Unavailable Unavailable Jt ALY MD Unavailable Unavailable Jt ALY MD Unavailable Unavailable Jt ALY MD Unavailable Unavailable Jt ALY MD Unavailable Unavailable Jt ALY MD Unavailable Unavailable Jt ALY MD Unavailable Unavailable Jt ALY MD Unavailable Unavailable Jt ALY MD Unavailable Unavailable Jt ALY MD Unavailable Unavailable Jt ALY MD Unavailable Unavailable Jt ALY MD Unavailable Unavailable Jt ALY MD Unavailable Unavailable Jt ALY MD Unavailable Unavailable Jt ALY MD Unavailable Unavailable Jt ALY MD Unavailable Unavailable Jt ALY MD Unavailable Unavailable Jt ALY MD Unavailable Unavailable Jt LAY MD Unavailable Unavailable Jt ALY MD Unavailable Unavailable Jt ALY MD Unavailable Unavailable Jt ALY MD Unavailable Unavailable Jt ALY MD Unavailable Unavailable Jt ALY MD Unavailable Unavailable Jt ALY MD Unavailable Unavailable Jt ALY MD Unavailable Unavailable Jt ALY MD Unavailable Unavailable Jt ALY MD Unavailable Unavailable Jt ALY MD Unavailable Unavailable Jt ALY MD Unavailable Unavailable Jt ALY MD Unavailable Unavailable Jt ALY MD Unavailable Unavailable Jt ALY MD Unavailable Unavailable Jt ALY MD Unavailable Unavailable Jt ALY MD Unavailable Unavailable Jt ALY MD Unavailable Unavailable Jt ALY MD Unavailable Unavailable Jt ALY MD Unavailable Unavailable Jt ALY MD Unavailable Unavailable Jt ALY MD Unavailable Unavailable Jt ALY MD Unavailable Unavailable Jt ALY MD Unavailable Unavailable Jt ALY MD Unavailable Unavailable Jt ALY MD Unavailable Unavailable Jt ALY MD Unavailable Unavailable Jt ALY MD Unavailable Unavailable Jt ALY MD Unavailable Unavailable Jt ALY MD Unavailable Unavailable Jt ALY MD Unavailable Unavailable Jt ALY MD Unavailable Unavailable Jt ALY MD Unavailable Unavailable Jt ALY MD Unavailable Unavailable Jt ALY MD Unavailable Unavailable Jt ALY MD Unavailable Unavailable Jt ALY MD Unavailable Unavailable Jt ALY MD Unavailable Unavailable Jt ALY MD Unavailable Unavailable Jt ALY MD Unavailable Unavailable Jt ALY MD Unavailable Unavailable Jt ALY MD Unavailable Unavailable Jt ALY MD Unavailable Unavailable Jt ALY MD Unavailable Unavailable Jt ALY MD Unavailable Unavailable Jt ALY MD Unavailable Unavailable RiveraShaina MD Unavailable Unavailable Rivera, Shaina Sexton MD Unavailable Unavailable Rivera, Shaina Sexton MD Unavailable Unavailable Rivera, Shaina Sexton MD Unavailable Unavailable Rivera, Shaina Sexton MD Unavailable Unavailable Rivera, Shaina Sexton MD Unavailable Unavailable Rivera, Shaina Sexton MD Unavailable Unavailable Rivera, Shaina Sexton MD Unavailable Unavailable Rivera, Shaina Sexton MD Unavailable Unavailable Rivera, Shaina eSxton MD Unavailable Unavailable Rivera, Shaina Sexton MD Unavailable Unavailable Rivera, Shaina Sexton MD Unavailable Unavailable Rivera, Shaina eSxton MD Unavailable Unavailable Rivera, Shaina Sexton MD Unavailable Unavailable Rivera, Shaina Sexton MD Unavailable Unavailable Rivera, Shaina Sexton MD Unavailable Unavailable Rivera, Shaina Sexton MD Unavailable Unavailable Rivera, L Darshan GOULD Unavailable Unavailable Rivera, Shaina Sexton MD Unavailable Unavailable Rivera, Shaina Sexton MD Unavailable Unavailable Rivera, Shaina Sexton MD Unavailable Unavailable Rivera, Shaina Sexton MD Unavailable Unavailable Rivera, Shaina Sexton MD Unavailable Unavailable Rivera, Shaina Sexton MD Unavailable Unavailable Rivera, Shaina Sexton MD Unavailable Unavailable Rivera, Shaina Sexton MD Unavailable Unavailable Rivera, Shaina Sexton MD Unavailable Unavailable Rivera, Shaina Sexton MD Unavailable Unavailable Rivera, Shaina Sexton MD Unavailable Unavailable Rivera, Shaina Sexton MD Unavailable Unavailable Rivera, Shaina Sexton MD Unavailable Unavailable Rivera, Shaina Sexton MD Unavailable Unavailable Rivera, Shaina Sexton MD Unavailable Unavailable Rivera, Shaina Sexton MD Unavailable Unavailable Rivera, Shaina Sexton MD Unavailable Unavailable Rivera, Shaina Sexton MD Unavailable Unavailable Rivera, L Darshan GOULD Unavailable Unavailable Rivera, Shaina Sexton MD Unavailable Unavailable Rivera, Shaina Sexton MD Unavailable Unavailable Rivera, Shaina Sexton MD Unavailable Unavailable Rivera, Shaina Sexton MD Unavailable Unavailable Rivera, Shaina Sexton MD Unavailable Unavailable Rivera, Shaina Sexton MD Unavailable Unavailable Rivera, Shaina Sexton MD Unavailable Unavailable Rivera, L Darshan GOULD Unavailable Unavailable Rivera, L Darshan GOULD Unavailable Unavailable Rivera, L Darshan MD Unavailable Unavailable Shaina Rivera MD Unavailable Unavailable Jt ALY MD Unavailable Unavailable Jt ALY MD Unavailable Unavailable Jt ALY MD Unavailable Unavailable Jt ALY MD Unavailable Unavailable Jt ALY MD Unavailable Unavailable Jt ALY MD Unavailable Unavailable Jt ALY MD Unavailable Unavailable Jt ALY MD Unavailable Unavailable Jt ALY MD Unavailable Unavailable Jt ALY MD Unavailable Unavailable Jt ALY MD Unavailable Unavailable Jt ALY MD Unavailable Unavailable Jt ALY MD Unavailable Unavailable Jt ALY MD Unavailable Unavailable Jt ALY MD Unavailable Unavailable Jt ALY MD Unavailable Unavailable Jt ALY MD Unavailable Unavailable Jt ALY MD Unavailable Unavailable Jt ALY MD Unavailable Unavailable Jt ALY MD Unavailable Unavailable Jt ALY MD Unavailable Unavailable Jt ALY MD Unavailable Unavailable Jt ALY MD Unavailable Unavailable Jt ALY MD Unavailable Unavailable Jt ALY MD Unavailable Unavailable Jt ALY MD Unavailable Unavailable Jt ALY MD Unavailable Unavailable Jt ALY MD Unavailable Unavailable Jt ALY MD Unavailable Unavailable Jt ALY MD Unavailable Unavailable Jt ALY MD Unavailable Unavailable Jt ALY MD Unavailable Unavailable Jt ALY MD Unavailable Unavailable Jt ALY MD Unavailable Unavailable Jt ALY MD Unavailable Unavailable Jt ALY MD Unavailable Unavailable Jt ALY MD Unavailable Unavailable Jt ALY MD Unavailable Unavailable Jt ALY MD Unavailable Unavailable Jt ALY MD Unavailable Unavailable Jt ALY MD Unavailable Unavailable Jt ALY MD Unavailable Unavailable Jt ALY MD Unavailable Unavailable Jt ALY MD Unavailable Unavailable Jt ALY MD Unavailable Unavailable Jt ALY MD Unavailable Unavailable Jt ALY MD Unavailable Unavailable Jt ALY MD Unavailable Unavailable Jt ALY MD Unavailable Unavailable Jt ALY MD Unavailable Unavailable Jt ALY MD Unavailable Unavailable Jt ALY MD Unavailable Unavailable Jt ALY MD Unavailable Unavailable Jt ALY MD Unavailable Unavailable Jt ALY MD Unavailable Unavailable Jt ALY MD Unavailable Unavailable Jt ALY MD Unavailable Unavailable Jt ALY MD Unavailable Unavailable Jt ALY MD Unavailable Unavailable Jt ALY MD Unavailable Unavailable Jt ALY MD Unavailable Unavailable Jt ALY MD Unavailable Unavailable Jt ALY MD Unavailable Unavailable Jt ALY MD Unavailable Unavailable Jt ALY MD Unavailable Unavailable Jt ALY MD Unavailable Unavailable Jt ALY MD Unavailable Unavailable Jt ALY MD Unavailable Unavailable Jt ALY MD Unavailable Unavailable Jt ALY MD Unavailable Unavailable Jt ALY MD Unavailable Unavailable Jt ALY MD Unavailable Unavailable Jt ALY MD Unavailable Unavailable Re-disclosure Warning The records that you are about to access may contain information from federally-assisted alcohol or drug abuse programs. If such information is present, then the following federally mandated warning applies: This information has been disclosed to you from records protected by federal confidentiality rules (42 CFR part 2). The federal rules prohibit you from making any further disclosure of this information unless further disclosure is expressly permitted by the written consent of the person to whom it pertains or as otherwise permitted by 42 CFR part 2. A general authorization for the release of medical or other information is NOT sufficient for this purpose. The Federal rules restrict any use of the information to criminally investigate or prosecute any alcohol or drug abuse patient.The records that you are about to access may contain highly sensitive health information, the redisclosure of which is protected by Article 27-F of the [facility] Public Health law. If you continue you may have access to information: Regarding HIV / AIDS; Provided by facilities licensed or operated by the [facility] Office of Mental Health; or Provided by the [facility] Office for People With Developmental Disabilities. If such information is present, then the following [facility] mandated warning applies: This information has been disclosed to you from confidential records which are protected by state law. State law prohibits you from making any further disclosure of this information without the specific written consent of the person to whom it pertains, or as otherwise permitted by law. Any unauthorized further disclosure in violation of state law may result in a fine or senior care sentence or both. A general authorization for the release of medical or other information is NOT sufficient authorization for further disc losure. Family History Family Member Name Family Member Gender Family Member Status Date o f Status Description Data Source(s) Unknown Unknown Problem [facility] ([facility]) Unknown Male Problem [facility] ([facility]) Unknown Unknown Problem [facility] ([facility] ) MGF Encounters Encounter Providers Location Date Indications Data Source(s ) Outpatient Attender: EDIE MOSQUERA DO [facility] 04/18/2020 07:00:00 AM EST [facility] Outpatient Attender: EDIE MOSQUERA DO [facility] 11/24/2019 09:30:00 AM EDT [facility] ([facility]) Outpatient Referrer: Mis CORTÉS 10/26/2019 01:19:00 PM EDT [facility] Outpatient Attender: Beltran RAO [facility] 10/18/2019 09:00:00 AM EDT [facility] ([facility]) Outpatient Referrer: Mis CORTÉS 10/17/2019 11:34:00 AM EDT [facility] Outpatient Attender: Beltran Brand MD Physical Therapy 08/16/2019 1 0:00:00 AM EDT [facility] ([facility]) Outpatient Referrer: Beltran Brand MD 08/12/2019 01:51:00 PM EDT [facility] Outpatient Referrer: Beltran Brand MD 08/12/2019 01:45:00 PM EDT [facility] Outpatient Referrer: Beltran Brand MD 08/12/2019 08:40:00 AM EDT [facility] Outpatient Referrer: JULITO ALY MD 08/11/2019 04:23:00 P M EDT [facility] Outpatient Referrer: JULITO ALY MD 08/11/2019 04:21:00 P M EDT [facility] Outpatient Referrer: JULITO ALY MD 08/11/2019 03:48:00 P M EDT [facility] Outpatient Attender: Beltran Brand MD Physical Therapy 08/11/2019 0 3:45:00 PM EDT [facility] ([facility]) Outpatient Attender: Mis Kemp 05/06 07:00:00 AM EST [facility] ([facility] ) Outpatient Attender: JULITO ALY MDReferrer: Darshan Mae [id number] 06/29/2018 12:00:00 AM EST Other specified sprain of right wrist, s ubsequent encounter [facility] Other specified sprain of right wrist, s ubsequent encounter Medications Medication Brand Name Start Date Product Form Dose Route Admi nistrative Instructions Pharmacy Instructions Status Indications Reaction Description Data Source(s) ferric carboxymaltose 50 MG/ML Injectable Solution [Injectaf er] Injectafer 05/11/2020 12:00:00 AM EST active [facility] ([facility]) pantoprazole 40 MG Delayed Release Oral Tablet Pantoprazole Sodium 04/18/2020 12:00:00 AM EST ORAL active M EDENT ([facility]) Insurance Providers Payer name Policy type / Coverage type Policy ID Covered alliance party ID Covered alliance party's relationship to pardo Policy Pardo Plan Information [facility] [id number] BCBS EMPIRE [place] DIV [id number] [facility] [id number] SP [id number] [facility] O [id number] S [id number] [employer] INSURANCE WC W [id number] Empl [id number] [facility] [id number] Self [id number] [facility] [id number] S [id number] [facility] [id number] SP [id number] BLUE CARD C [id number] Self [id number] [employer] (WC) Workers Compensation [id number] Self [id number] [employer] (NF) Workers Compensation [id number] Self [id number] [place] Medigap Part B [id number] Self [id number] [place] PPO 302/307 [id number] SP [id number] ONE CALL CARE MANAGEMENT O [id number] S [id number] [employer] (WC) Workers Compensation [id number] Self [id number] [employer] [place] [id number] SP [id number] [place] PPO 302/307 [id number] SP [id number] [facility] Commercial [id number] Self [id number] EXCELLUS BLUE CROSS BLUE SHIELD HEA [id number] S [id number] [place] PPO 302/307 [id number] SP [id number] [employer] BLUE CROSS BLUE SHIELD HEA [id number] S [id number] [employer] BLUE CROSS BLUE SHIELD HEA [id number] S [id number] [facility] [id number] SP [id number] EXCELLUS BCBS B [id number] S [id number] EXCELLUS BCBS B UNAVAILABLE S UNAV AILABLE [facility](MCAID) O [id number] S [id number] [employer] [place] [id number] SP [id number] BS [place] Commercial Self SELF PAY UNAVAILABLE UNAVAILA BLE UNHC COMMUNITY PLAN [id number] SP [id number] [employer] [place] [id number] SP [id number] [employer] [place] [id number] SP [id number] BCBS [place] PPO 302/307 [id number] SP [id number] HMO BLUE [id number] SP [id number] EXCE[employer] BCBS P [id number] S [id number] Problems, Conditions, and Diagnoses Code Display Name Description Problem Type Effective Dates Data Source(s) 001775161 Bariatric operative procedure Bariatric operative proc edure Problem 10/18/2019 12:00:00 AM EDT [facility] ([facility]) [id number] Diverticulitis Diverticulitis Problem 10/18/2019 12:00: 00 AM EDT [facility] ([facility]) [id number] Anemia Anemia Problem 10/18/2019 12:00:00 AM ED T [facility] ([facility]) [id number] Hypothyroidism Hypothyroidism Problem 10/18/2019 12:00: 00 AM EDT [facility] ([facility]) Surgeries/Procedures Procedure Description Date Indications Data Source(s) RADIOLOGIC EXAMINATION TIBIA & FIBULA 2 VIEWS 08/11/19 12:00:00 AM EDT [facility] ([facility] ) Results ID Date Data Source [id number] 06/10/2020 09:30:00 AM EST [facility] Name Value Range Interpretation Code Description Data Violeta rce(s) Supporting Document(s) SARS coronavirus 2 RNA Not Detected [facility] [place] This lab was ordered by [facility] and reported by [facility]. ID Date Data Source [id number] 11/04/2019 12:00:00 AM EDT [facility] Ann Lepine Anp Patient Name: OSACR [id number] [facility] Date of : 1975[place] [address] Date of Exam: 11/04/2019#: Fax: [phone] EXAM: MAMMO SCREENING WITH CADCLINICAL INFORMATION: Screening.Digital screening (2D) mammography was performed with implants displacedand included for each view. 3D tomosynthesis images were also provided.She has no current complaints or personal history of breast cancer. Thereis a family history of breast cancer in a sibling at age 35.[facility] D, the breasts areextremely dense which lowers the sensitivity of mammography.FINDINGS: The breasts are very dense. This limits the sensitivity ofmammography. Large coarse calcifications are present, of no clinicalsignificance. There are some early vascular calcifications noted in theouter half of each breast on the CC views and in the left MLO view.Scattered lymph nodes are seen in the axilla. Implants show smooth regularenvelopes without displacement or leakage. No dominant masses, suspiciouscluster of microcalcifications or secondary signs of malignancy are seen.The 3D tomosynthesis images show no additional findings.IMPRESSION:BI-RADS Category 2 - Benign Finding(s). Stable mammogram. There is noevidence of malignant alteration of the breasts. Followup examinationrecommended in one year.This mammogram was read with the assistance of Harrison NUNEZ, an FDAapproved computer aided detection system for mammography.Negative x-ray reports should not delay surgical consultation if a dominantor clinically suspicious mass is present.Not all breast cancers can be identified by mammography. Therefore, werecommend that you continue to perform regular breast self-examination andphysical examination and then promptly contact your physician of anyconcerns or changes.Adenosis and dense breasts may obscure an underlying neoplasm.The patient states that the last clinical breast exam was in 04/2019.Based on the personal and family history information your pa anu suppliedat the time of imaging, her lifetime risk of breast cancer estimated by theTyrer-Cuzick model is 16.8%. Given that this patient has less than 20% TCrisk score, no further medical management is currently recommended at thistime.Your patient's personal and/or family history of cancer submitted at thetime of imaging is suggestive of a hereditary cancer syndrome. She meetsthe criteria for genetic testing established by National ComprehensiveCancer Network and [place] [employer] guidelines. She should pursue arisk assessment with a hereditary cancer specialist which may includetesting based on these criteria. The benefits and limitations of genetictesting would be discussed, including potential changes to medicalmanagement based on the results. Your patient declined myRisk genetictesting at this time.KALLI Jason/Ar you for referring HERBER ELLIOTT to our office. Electronically Signed - MICHAEL TEMPLE MD 11/04/19 10:26 Name Value Range Interpretation Code Description Data Violeta rce(s) Supporting Document(s) ID Date Data Source [id number] 08/12/2019 12:00:00 AM EDT [facility] Beltran Brand MD Patient Name: NAOMIE ELLIOTT [facility] Date of : 1975[place] [address] Date of Exam: 08/12/2019#: Fax: [phone] EXAM: MRI TIBIA RIGHT WITHOUT CONTRASTCLINICAL INFORMATION: Pain. No trauma.3T multiplanar MRI imaging of the right tibia was obtained using varioussequences.The cortical and marrow signal seen throughout the tibia and fibula iswithin normal limits. There is no abnormal periosteal thickening. Thereis T2 hypersignal seen along the anteromedial precortical tibial softtissues extending medially along the lateral head of the gastrocnemiusmuscle anteriorly. There are no abnormal intra- or extracompartmentalfluid collections. There is no mass or mass effect. The imaged flexor andextensor tendons are intact and of normal appearing low signal throughout.IMPRESSION:There is evidence of mild edema in the anterior and anteromedial softtissues as described above suggestive of nichole splints and muscular strain.There is no evidence of a stress fracture or other abnormality. Findingsas described above.Accredited by the [place] [employer] in MRMICHAEL Tobias/Ar you for referring HERBER ELLIOTT to our office. Electronically Signed - TOMÁS RODAS DO 08/15/19 7:53 Name Value Range Interpretation Code Description Data Violeta rce(s) Supporting Document(s) ID Date Data Source [id number] 05/06/2019 07:33:00 AM EST [facility] ([facility]) Name Value Range Interpretation Code Description Data Violeta rce(s) Supporting Document(s) Calcidiol [Mass/volume] in Serum or Plasma <pending> [facility] ([facility]) ID Date Data Source [id number] 05/06/2019 07:33:00 AM EST [facility] ([facility]) Name Value Range Interpretation Code Description Data Violeta rce(s) Supporting Document(s) Thyrotropin [Units/volume] in Serum or Plasma by Detec tion limit <= 0.05 mIU/L <pending> [facility] ([facility] ) Procedure Social History Code Duration Value Status Description Data Source(s ) Smoking 04/18/2020 12:00:00 AM EST Patient has never smoked co mpleted Patient has never smoked [facility] ([facility]) Vital Signs ID Date Data Source UNK Name Value Range Interpretation Code Description Data Source(s) [place] body weight 110 [lb_av] 110 [lb_av] MEDEN T ([facility]) Oxygen saturation in Arterial blood by Pulse oximetry 97 % 97 % [facility] ([facility]) Body temperature 97.6 [degF] 97.6 [degF] [facility] ([facility]) Respiratory rate 18 /min 18 /min [facility] ( [facility]) Heart rate 79 /min 79 /min [facility] ([facility]) Body mass index (BMI) [Ratio] 27.9 kg/m2 27.9 k g/m2 [facility] ([facility]) Body weight 155.00 [lb_av] 155.00 [lb_av] MEDEN T ([facility]) Body height 62.5 [in_i] 62.5 [in_i] [facility] ([facility]) 5'2.50" Diastolic blood pressure 68 mm[Hg] 68 mm[Hg] [facility] ([facility]) Systolic blood pressure 120 mm[Hg] 120 mm[Hg] M EDENT ([facility]) [place] body weight 110 [lb_av] 110 [lb_av] MEDEN T ([facility]) Oxygen saturation in Arterial blood by Pulse oximetry 97 % 97 % [facility] ([facility]) Body temperature 98.5 [degF] 98.5 [degF] [facility] ([facility]) Respiratory rate 16 /min 16 /min [facility] ( [facility]) Heart rate 70 /min 70 /min [facility] ([facility]) Body mass index (BMI) [Ratio] 27.9 kg/m2 27.9 k g/m2 [facility] ([facility]) Body weight 155.00 [lb_av] 155.00 [lb_av] MEDEN T ([facility]) Body height 62.5 [in_i] 62.5 [in_i] [facility] ([facility]) 5'2.50" Diastolic blood pressure 78 mm[Hg] 78 mm[Hg] [facility] ([facility]) Systolic blood pressure 122 mm[Hg] 122 mm[Hg] [facility] ([facility]) Oxygen saturation in Arterial blood by Pulse oximetry 98 % 98 % [facility] ([facility]) Body temperature 98.3 [degF] 98.3 [degF] [facility] ([facility]) Respiratory rate 16 /min 16 /min [facility] ( [facility]) Heart rate 68 /min 68 /min [facility] ([facility]) Body mass index (BMI) [Ratio] 28.5 kg/m2 28.5 k g/m2 [facility] Body weight 158.12 [lb_av] 158.12 [lb_av] MEDEN T ([facility]) Body height 62.5 [in_i] 62.5 [in_i] [facility] 5'2.50" Diastolic blood pressure 78 mm[Hg] 78 mm[Hg] [facility] Systolic blood pressure 122 mm[Hg] 122 mm[Hg] [facility] ([facility]) Body mass index (BMI) [Ratio] 27.2 kg/m2 27.2 k g/m2 [facility] ([facility]) Body weight 155.00 [lb_av] 155.00 [lb_av] MEDEN T ([facility]) Body height 63.25 [in_i] 63.25 [in_i] [facility] 5'3.25" Heart rate 72 /min 72 /min [facility] ([facility]) Diastolic blood pressure 60 mm[Hg] 60 mm[Hg] [facility] ([facility]) Systolic blood pressure 104 mm[Hg] 104 mm[Hg] Eunice HUNTER ([facility])
[2020-06-15] MEDS ORDERED: GLYCOPYRROLATE INJ 0.2 MG/ML 2 ML VIAL As Ordered ONE (13:37)
[2020-06-15 14:10] VITALS: BP 113/66
--- NOTE | 2020-06-15 14:14 | ROOR ---
Patient Name: Adela Valladares Procedure Date: 06/15/2020 1:25 PM Date of : 1975 Age: 45 Room: [facility] Gender: Female Note Status: Finalized Procedure: Upper GI endoscopy Indications: Epigastric abdominal pain Providers: Ranjit Lees MD Referring MD: Hoda MOSQUERA DO Requesting Provider: Medicines: Monitored Anesthesia Care Complications: No immediate complications. Procedure: Pre-Anesthesia Assessment: - Prior to the procedure, a History and Physical was performed, and patient medications and allergies were reviewed. The patient is competent. The risks and benefits of the procedure and the sedation options and risks were discussed with the patient. All questions were answered and informed consent was obtained. Patient identification and proposed procedure were verified by the physician, the nurse and the anesthesiologist in the procedure room. Mental Status Examination: alert and oriented. Airway Examination: normal oropharyngeal airway and neck mobility. Respiratory Examination: clear to auscultation. CV Examination: normal. Prophylactic Antibiotics: The patient does not require prophylactic antibiotics. Prior Anticoagulants: The patient has taken no previous anticoagulant or antiplatelet agents. ASA Grade Assessment: II - A patient with mild systemic disease. After reviewing the risks and benefits, the patient was deemed in satisfactory condition to undergo the procedure. The anesthesia plan was to use monitored anesthesia care (MAC). Immediately prior to administration of medications, the patient was re-assessed for adequacy to receive sedatives. The heart rate, respiratory rate, oxygen saturations, blood pressure, adequacy of pulmonary ventilation, and response to care were monitored throughout the procedure. The physical status of the patient was re-assessed after the procedure. The Endoscope was introduced through the mouth, and advanced to the second part of duodenum. The upper GI endoscopy was accomplished without difficulty. The patient tolerated the procedure well. Findings: The examined esophagus was normal. The Z-line was regular and was found 40 cm from the incisors. Evidence of a Rehana-en-Y gastrojejunostomy was found. The gastrojejunal anastomosis was characterized by healthy appearing mucosa. This was traversed. The jtbwd-gh-vaynqsb limb was characterized by healthy appearing mucosa and an intact staple line. The jejunojejunal anastomosis was characterized by healthy appearing mucosa. The nmktwjhf-sj-ytdsgth limb was not examined as it could not be traversed. Patchy mild inflammation characterized by erythema and granularity was found in the gastric body. Biopsies were taken with a cold forceps for Helicobacter pylori testing. Verification of patient identification for the specimen was done by the physician and nurse using the patient's name, date and medical record number. Estimated blood loss was minimal. Normal mucosa was found in the jejunum. Impression: - Normal esophagus. - Z-line regular, 40 cm from the incisors. - Rehana-en-Y gastrojejunostomy with gastrojejunal anastomosis characterized by healthy appearing mucosa. - Gastritis. Biopsied. - Normal mucosa was found in the jejunum. Recommendation: - Patient has a contact number available for emergencies. The signs and symptoms of potential delayed complications were discussed with the patient. Return to normal activities tomorrow. Written discharge instructions were provided to the patient. - High fiber diet and Post gastric bypass diet (small frequent meals and avoid fatty/ fried foods). - Continue present medications. - Await pathology results. - Follow an antireflux regimen. - Telephone GI clinic for pathology results in 2 weeks. - Return to primary care physician. Procedure Code(s): --- Professional --- 16635, Esophagogastroduodenoscopy, flexible, transoral; with biopsy, single or multiple Diagnosis Code(s): --- Professional --- Z98.0, Intestinal bypass and anastomosis status K29.70, Gastritis, unspecified, without bleeding R10.13, Epigastric pain CPT copyright 2019 [employer]. All rights reserved. The codes documented in this report are preliminary and upon interlibrary loan services librarian review may be revised to meet current compliance requirements. Ranjit Lees MD Ranjit Lees MD 06/15/2020 2:13:24 PM Electronically signed by Ranjit Lees MD Number of Addenda: 0 Note Initiated On: 06/15/2020 1:25 PM Estimated Blood Loss: Estimated blood loss was minimal.
== END 2020-06-15 14:20 | disposition home or self-care (01) ==
LOC: M OPP 10:45
PROVIDERS: ATTEND Internal Medicine Gastroenterology
DX: R10.13 Epigastric pain (principal); R11.2 Nausea with vomiting, unspecified; D13.1 Benign neoplasm of stomach; K29.70 Gastritis, unspecified, without bleeding; Z98.0 Intestinal bypass and anastomosis status; E03.9 Hypothyroidism, unspecified; Z98.84 Bariatric surgery status; Z79.899 Other long term (current) drug therapy; Z80.0 Family history of malignant neoplasm of digestive organs; Z80.42 Family history of malignant neoplasm of prostate; Z82.49 Family history of ischemic heart disease and other diseases of the circulatory system; Z80.3 Family history of malignant neoplasm of breast
CPT/HCPCS: 43239; 88305; J3010

== ENCOUNTER → 2020-07-04 | Outpatient (CLI) | payer BC, OTHER ==
[~2020-07-04] MED LIST changes: +ISOVUE-370 76% 100ML VIAL As Ordered ONE; -LIDOCAINE 2% 100MG/5ML SDV (FOR ANES.) As Ordered ONE; -NS 1,000 ML IV ONE; -fentaNYL 100 MCG/2 ML INJECTION (J3010) As Ordered ONE; -propofoL 200 MG/20 ML VIAL As Ordered ONE
--- NOTE | 2020-07-04 16:54 | REP ---
INDICATION: SOLITARY PULMONARY NODULE COMPARISON: None TECHNIQUE: Axial contrast enhanced images from the thoracic inlet to the upper abdomen with coronal and sagittal reformations using 75 ml Isovue 370 intravenous contrast material. This CT examination was performed using the following dose reduction techniques: Automated exposure control, adjustment of mA and/or kv according to the patient's size, and use of iterative reconstruction technique. FINDINGS: Bilateral lung nj are relatively well aerated and clear. There is a 4 mm noncalcified solitary nodule in the right lower lobe (series 201; image 74). No further consolidation, suspicious nodule or mass lesion. No pleural effusion. No pneumothorax. Tracheobronchial tree is patent. No axillary, hilar, or mediastinal adenopathy is appreciated. Thoracic aorta, pulmonary vasculature, and heart/pericardium are normal. Thyroid gland is unremarkable by CT evaluation. Surrounding musculoskeletal structures intact and without acute osseous abnormality. Evidence for bilateral mammoplasty. IMPRESSION: 1. 4 mm noncalcified solitary nodule in the right lower lobe. No prior examinations are available for comparison. <Electronically signed by Florencio Arias > 07/04/20 [id number]
== END ==
LOC: M RAD 16:08
PROVIDERS: ATTEND Family Medicine
DX: R91.1 Solitary pulmonary nodule (principal)
CPT/HCPCS: 71260; Q9967

== ENCOUNTER 2020-10-23 13:19 | Emergency (ER) | payer OTHER, BC ==
[~2020-10-23] VITALS: Ht 157.5 cm; Wt 71.1 kg
[2020-10-23 13:19] VITALS: BP 118/72
[~2020-10-23 13:19] MED LIST changes: -ISOVUE-370 76% 100ML VIAL As Ordered ONE
--- NOTE | 2020-10-23 14:01 | REP ---
INDICATION: pain ulna after lifting gallon jug, tingling 1st three finge COMPARISON: None. TECHNIQUE: AP, lateral, bilateral oblique views left wrist. FINDINGS: The carpal bones, surrounding osseous structures, soft tissues, and joint spaces are normal. There is no evidence for acute fracture or dislocation. No subcutaneous emphysema or radiodense foreign body. IMPRESSION: Normal wrist series. No acute fracture or dislocation. <Electronically signed by Florencio Arias > 10/23/20 1653
== END 2020-10-23 14:36 | disposition home or self-care (01) ==
LOC: M ED 13:19
DX: S63.92XA Sprain of unspecified part of left wrist and hand, initial encounter (principal); X50.0XXA Overexertion from strenuous movement or load, initial encounter; Y92.89 Other specified places as the place of occurrence of the external cause; Y93.89 Activity, other specified; Y99.0 Civilian activity done for income or pay; K21.9 Gastro-esophageal reflux disease without esophagitis; E03.9 Hypothyroidism, unspecified; Z98.84 Bariatric surgery status; Z79.899 Other long term (current) drug therapy

== ENCOUNTER → 2020-11-02 | Outpatient (CLI) | payer OTHER, BC ==
[2020-11-02 16:06] LABS: BASO % 0.6 % (0.0-1.0); EOS # 0.1 10^3/uL (0.0-0.5); HEMATOCRIT 40.1 % (36.0-47.0); HEMOGLOBIN 12.9 g/dl (12.0-15.5); LYMPH # 1.6 10^3/uL (1.5-5.0); LYMPH % 22.4 % (24.0-44.0); MEAN CORPUSCULAR HGB CONC 32.2 g/dl (32.0-36.5); MEAN CORPUSCULAR VOLUME 99.5 fl (80.0-96.0); MONO # 0.6 10^3/uL (0.0-0.8); MONO % 8.3 % (2.0-8.0); NEUTROPHILS # 4.7 10^3/uL (1.5-8.5); NEUTROPHILS % 66.4 % (36.0-66.0); PLATELET COUNT, AUTOMATED 353 10^3/uL (150-450); RED BLOOD COUNT 4.03 10^6/uL (4.00-5.40)
[2020-11-02 16:37] LABS: C REACTIVE PROTEIN QUANTITATIV < 0.30 MG/DL (0.00-0.30); RHEUMATOID FACTOR QUANT < 10.0 IU/ML (<15.0)
[2020-11-02 16:38] LABS: ERYTHROCYTE SEDIMENTATION RATE 7 mm/hr (0-20)
== END ==
LOC: M LAB 07:27
PROVIDERS: ATTEND Physician Assistant
DX: M67.834 Other specified disorders of tendon, left wrist (principal)

== ENCOUNTER → 2021-04-18 | Outpatient (CLI) | payer BC, OTHER | LOC: M WHC 07:33 | PROVIDERS: ATTEND Family Medicine | DX: Z12.31 Encounter for screening mammogram for malignant neoplasm of breast (principal); Z53.9 Procedure and treatment not carried out, unspecified reason ==

== ENCOUNTER → 2021-05-03 | Outpatient (REF) | LOC: M EMP 09:22 | PROVIDERS: ATTEND Family Medicine | DX: Z20.822 Contact with and (suspected) exposure to COVID-19 (principal) ==

== ENCOUNTER → 2021-05-23 | Outpatient (CLI) | payer BC, OTHER | LOC: M WHC 12:02 | PROVIDERS: ATTEND Family Medicine | DX: N64.4 Mastodynia (principal); N63.23 Unspecified lump in the left breast, lower outer quadrant; Z98.82 Breast implant status | CPT/HCPCS: 76642; 77066; G0279 ==

== ENCOUNTER → 2021-10-22 | Outpatient (CLI) | payer BC, OTHER ==
[2021-10-22 08:09] LABS: BASO % 0.5 % (0.0-1.0); EOS # 0.2 10^3/uL (0.0-0.5); EOS % 2.8 % (0.0-3.0); HEMATOCRIT 35.2 % (36.0-47.0); HEMOGLOBIN 11.1 g/dl (12.0-15.5); LYMPH # 1.6 10^3/uL (1.5-5.0); LYMPH % 25.9 % (24.0-44.0); MEAN CORPUSCULAR HEMOGLOBIN 29.5 pg (27.0-33.0); MEAN CORPUSCULAR HGB CONC 31.5 g/dl (32.0-36.5); MEAN CORPUSCULAR VOLUME 93.6 fl (80.0-96.0); MONO # 0.6 10^3/uL (0.0-0.8); MONO % 9.7 % (2.0-8.0); NEUTROPHILS # 3.7 10^3/uL (1.5-8.5); NEUTROPHILS % 60.8 % (36.0-66.0); PLATELET COUNT, AUTOMATED 316 10^3/uL (150-450); RED BLOOD COUNT 3.76 10^6/uL (4.00-5.40); WHITE BLOOD COUNT 6.1 10^3/uL (4.0-10.0)
[2021-10-22 08:44] LABS: ALBUMIN 3.3 GM/DL (3.2-5.2); ALT/SGPT 24 U/L (12-78); BILIRUBIN,TOTAL 0.5 MG/DL (0.2-1.0); BLOOD UREA NITROGEN 16 MG/DL (7-18); CALCIUM LEVEL 9.2 MG/DL (8.5-10.1); CARBON DIOXIDE LEVEL 27 MEQ/L (21-32); CHLORIDE LEVEL 106 MEQ/L (98-107); CHOLESTEROL LEVEL 178 MG/DL (<200); CHOLESTEROL RISK RATIO 2.022 (<5); CREATININE FOR GFR 0.75 MG/DL (0.55-1.30); FERRITIN 8 NG/ML (8-252); FREE T4 1.26 NG/DL (0.76-1.46); GLOMERULAR FILTRATION RATE > 60.0 (>58); GLUCOSE, FASTING 88 MG/DL (70-100); HDL CHOLESTEROL 88 MG/DL (>40); IRON (FE) 70 UG/DL (50-170); LDL CHOLESTEROL 76 MG/DL (<100); NON-HDL-C 90 MG/DL; PERCENT SATURATION 14.8 % (13.2-45.0); POTASSIUM SERUM 4.1 MEQ/L (3.5-5.1); SODIUM LEVEL 140 MEQ/L (136-145); TOTAL IRON BINDING CAPACITY 473 UG/DL (250-450); TOTAL PROTEIN 6.3 GM/DL (6.4-8.2); TRIGLYCERIDES LEVEL 70 MG/DL (<150)
[2021-10-22 09:01] LABS: TOTAL 25(OH) VITAMIN D 47.4 NG/ML (30.0-100.0)
[2021-10-22 09:02] LABS: VITAMIN B12 LEVEL 307 PG/ML (247-911)
== END ==
LOC: M LAB 07:24
PROVIDERS: ATTEND Family Medicine
DX: D50.9 Iron deficiency anemia, unspecified (principal); Z98.84 Bariatric surgery status; E03.9 Hypothyroidism, unspecified; Z13.220 Encounter for screening for lipoid disorders

== ENCOUNTER 2021-10-31 12:55 | Outpatient (CLI) | payer BC, OTHER ==
[~2021-10-31] VITALS: Ht 165.1 cm; Wt 65.0 kg
[2021-10-31] MEDS ORDERED: FERRIC CARBOXYMALTOSE INJ 750 MG in NS 250 ML (>50kg) IV ONE ×3 (13:10)
[2021-10-31 13:19] VITALS: BP 111/67
[2021-10-31 14:58] VITALS: BP 111/72
== END 2021-10-31 14:50 | disposition home or self-care (01) ==
LOC: M INFU 12:55
PROVIDERS: ATTEND Family Medicine
DX: D50.9 Iron deficiency anemia, unspecified (principal)
CPT/HCPCS: 96365; J1439

== ENCOUNTER 2021-11-11 12:40 | Outpatient (CLI) | payer BC, OTHER ==
[~2021-11-11] VITALS: Ht 157.5 cm; Wt 70.4 kg
[2021-11-11 12:40] VITALS: BP 121/69
[2021-11-11] MEDS ORDERED: FERRIC CARBOXYMALTOSE INJ 750 MG in NS 250 ML (>50kg) IV ONE ×3 (13:00)
[2021-11-11 14:05] VITALS: BP 106/59
== END 2021-11-11 14:05 | disposition home or self-care (01) ==
LOC: M INFU 12:40
PROVIDERS: ATTEND Family Medicine
DX: D50.9 Iron deficiency anemia, unspecified (principal)
CPT/HCPCS: 96365; J1439

== ENCOUNTER → 2022-06-05 | Outpatient (CLI) | payer BC, OTHER | LOC: M WHC 08:06 | PROVIDERS: ATTEND Nurse Practitioner Adult Health | DX: Z12.31 Encounter for screening mammogram for malignant neoplasm of breast (principal); R92.2 Inconclusive mammogram; Z80.3 Family history of malignant neoplasm of breast ==

== ENCOUNTER → 2022-07-03 | Outpatient (CLI) | payer BC, OTHER ==
[~2022-07-03] MED LIST changes: +LEVO175T2 PO
== END ==
LOC: M LABSMTC 09:48
PROVIDERS: ATTEND Anesthesiology
DX: Z01.812 Encounter for preprocedural laboratory examination (principal); Z20.822 Contact with and (suspected) exposure to COVID-19

== ENCOUNTER 2022-07-08 07:43 | Day surgery (SDC) | payer BC, OTHER ==
[~2022-07-08] VITALS: Ht 157.5 cm; Wt 73.8 kg
[~2022-07-08 07:43] MED LIST changes: +NS 1,000 ML IV ONE
[2022-07-08] MEDS ORDERED: propofoL 200 MG/20 ML VIAL As Ordered ONE ×3 (09:33→09:55)
[2022-07-08] MEDS ORDERED: LIDOCAINE 2% 100MG/5ML SDV (FOR ANES.) As Ordered ONE (09:33)
[2022-07-08 10:21] VITALS: BP 100/57
== END 2022-07-08 10:35 | disposition home or self-care (01) ==
LOC: M OPP 07:43
PROVIDERS: ATTEND Internal Medicine Gastroenterology
DX: Z12.11 Encounter for screening for malignant neoplasm of colon (principal); Z86.010 Personal history of colon polyps; Z80.0 Family history of malignant neoplasm of digestive organs; K63.5 Polyp of colon; K64.4 Residual hemorrhoidal skin tags; K64.8 Other hemorrhoids; K57.30 Diverticulosis of large intestine without perforation or abscess without bleeding; E03.9 Hypothyroidism, unspecified; D50.9 Iron deficiency anemia, unspecified; Z80.3 Family history of malignant neoplasm of breast; Z80.42 Family history of malignant neoplasm of prostate

== ENCOUNTER → 2022-08-05 | Outpatient (CLI) | payer BC, OTHER ==
[~2022-08-05] MED LIST changes: -NS 1,000 ML IV ONE
== END ==
LOC: M WHC 13:30
PROVIDERS: ATTEND Nurse Practitioner Adult Health
DX: N60.02 Solitary cyst of left breast (principal)
CPT/HCPCS: 76642; 77065; G0279

== ENCOUNTER → 2022-11-04 | Outpatient (CLI) | payer BC, OTHER ==
[2022-11-04 06:52] LABS: BASO % 0.7 % (0.0-1.0); EOS # 0.2 10^3/uL (0.0-0.5); EOS % 3.9 % (0.0-3.0); HEMATOCRIT 38.2 % (36.0-47.0); HEMOGLOBIN 12.6 g/dl (12.0-15.5); LYMPH # 1.5 10^3/uL (1.5-5.0); MEAN CORPUSCULAR HEMOGLOBIN 32.3 pg (27.0-33.0); MEAN CORPUSCULAR VOLUME 97.9 fl (80.0-96.0); MONO # 0.6 10^3/uL (0.0-0.8); MONO % 9.5 % (2.0-8.0); NEUTROPHILS # 3.5 10^3/uL (1.5-8.5); NEUTROPHILS % 59.6 % (36.0-66.0); PLATELET COUNT, AUTOMATED 306 10^3/uL (150-450); WHITE BLOOD COUNT 5.9 10^3/uL (4.0-10.0)
[2022-11-04 07:16] LABS: ALBUMIN 3.4 G/DL (3.2-5.2); ALKALINE PHOSPHATASE 47 U/L (46-116); ALT/SGPT 22 U/L (7.0-40); AST/SGOT 21 U/L (<34); BILIRUBIN,TOTAL 0.4 MG/DL (0.3-1.2); BLOOD UREA NITROGEN 22 MG/DL (9-23); CALCIUM LEVEL 9.4 MG/DL (8.5-10.1); CARBON DIOXIDE LEVEL 30 MMOL/L (20-31); CHLORIDE LEVEL 105 MMOL/L (98-107); CREATININE FOR GFR 0.75 MG/DL (0.55-1.30); GLOMERULAR FILTRATION RATE > 60.0 (>58); GLUCOSE, FASTING 89 MG/DL (60-100); IRON (FE) 37 UG/DL (50-170); POTASSIUM SERUM 4.1 MMOL/L (3.5-5.1); SODIUM LEVEL 138 MMOL/L (136-145); TOTAL IRON BINDING CAPACITY 409 UG/DL (250-425); TOTAL PROTEIN 6.1 G/DL (5.7-8.2)
[2022-11-04 07:17] LABS: FERRITIN 7.7 NG/ML (7.3-270.7); FREE T4 1.26 NG/DL (0.89-1.76); THYROID STIMULATING HORMONE 1.595 uIU/ML (0.55-4.78)
[2022-11-04 07:18] LABS: FOLATE > 24.0 NG/ML (>5.4); VITAMIN B12 LEVEL 802 PG/ML (211-911)
== END ==
LOC: M LAB 06:27
PROVIDERS: ATTEND Nurse Practitioner Adult Health
DX: D50.9 Iron deficiency anemia, unspecified (principal); E03.9 Hypothyroidism, unspecified; D51.9 Vitamin B12 deficiency anemia, unspecified

== ENCOUNTER 2022-11-20 11:00 | Outpatient (CLI) | payer BC, OTHER ==
[~2022-11-20] VITALS: Ht 157.5 cm; Wt 70.0 kg
[2022-11-20 11:00] VITALS: BP 113/68; O2SAT 100
[~2022-11-20 11:00] MED LIST changes: +CURRENT HEIGHT AND WEIGHT NEEDED ON PATIENT XX SCH; +FERRIC CARBOXYMALTOSE INJ 750 MG in NS 250 ML (>50kg) IV ONE
[2022-11-20 12:20] VITALS: BP 122/64; O2SAT 98
== END 2022-11-20 12:20 | disposition home or self-care (01) ==
LOC: M INFU 11:00
PROVIDERS: ATTEND Family Medicine
DX: D50.9 Iron deficiency anemia, unspecified (principal)
CPT/HCPCS: 96365; J1439

== ENCOUNTER 2022-12-04 13:15 | Outpatient (CLI) | payer BC, OTHER ==
[~2022-12-04] VITALS: Ht 165.1 cm; Wt 70.1 kg
[~2022-12-04 13:15] MED LIST changes: -CURRENT HEIGHT AND WEIGHT NEEDED ON PATIENT XX SCH; -FERRIC CARBOXYMALTOSE INJ 750 MG in NS 250 ML (>50kg) IV ONE
[2022-12-04] MEDS ORDERED: FERRIC CARBOXYMALTOSE INJ 750 MG in NS 250 ML (>50kg) IV ONE ×3 (13:30)
[2022-12-04 13:34] VITALS: BP 124/71; O2SAT 100
[2022-12-04 14:55] VITALS: BP 109/72; O2SAT 100
== END 2022-12-04 14:58 | disposition home or self-care (01) ==
LOC: M INFU 13:15
PROVIDERS: ATTEND Family Medicine
DX: D50.9 Iron deficiency anemia, unspecified (principal)
CPT/HCPCS: 96365; J1439

== ENCOUNTER → 2023-08-04 | Outpatient (CLI) | payer BC | LOC: M WHC 10:44 | PROVIDERS: ATTEND Family Medicine | DX: R92.8 Other abnormal and inconclusive findings on diagnostic imaging of breast (principal) | CPT/HCPCS: 77066; G0279 ==

== ENCOUNTER → 2023-10-26 | Outpatient (REF) | payer BC | LOC: M LAB REF 08:32 | PROVIDERS: ATTEND Family Medicine | DX: D48.5 Neoplasm of uncertain behavior of skin (principal) ==

== ENCOUNTER → 2024-05-03 | Outpatient (CLI) | payer BC ==
[~2024-05-03] MED LIST changes: +GABA-1172 PO; -GABA-282 PO
[2024-05-03 07:49] LABS: BASO # 0.1 10^3/uL (0.0-0.2); BASO % 0.7 % (0.0-1.0); EOS # 0.3 10^3/uL (0.0-0.5); EOS % 3.9 % (0.0-3.0); HEMOGLOBIN 13.1 g/dl (12.0-15.5); LYMPH # 1.5 10^3/uL (1.5-5.0); LYMPH % 20.2 % (24.0-44.0); MEAN CORPUSCULAR HEMOGLOBIN 32.3 pg (27.0-33.0); MEAN CORPUSCULAR HGB CONC 33.6 g/dl (32.0-36.5); MEAN CORPUSCULAR VOLUME 96.3 fl (80.0-96.0); MONO # 0.6 10^3/uL (0.0-0.8); MONO % 8.1 % (2.0-8.0); NEUTROPHILS # 4.8 10^3/uL (1.5-8.5); NEUTROPHILS % 66.7 % (36.0-66.0); PLATELET COUNT, AUTOMATED 302 10^3/uL (150-450); RED BLOOD COUNT 4.05 10^6/uL (4.00-5.40); WHITE BLOOD COUNT 7.3 10^3/uL (4.0-10.0)
[2024-05-03 08:19] LABS: ALBUMIN 3.6 G/DL (3.2-5.2); ALKALINE PHOSPHATASE 46 U/L (35-104); ALT/SGPT 45 U/L (7.0-40); AST/SGOT 31 U/L (<34); BILIRUBIN,TOTAL 0.4 MG/DL (0.3-1.2); BLOOD UREA NITROGEN 18 MG/DL (9-23); CALCIUM LEVEL 9.7 MG/DL (8.5-10.1); CARBON DIOXIDE LEVEL 31 MMOL/L (20-31); CHLORIDE LEVEL 104 MMOL/L (98-107); CHOLESTEROL LEVEL 205 MG/DL (<200); CHOLESTEROL RISK RATIO 2.37 (<5); CREATININE FOR GFR 0.79 MG/DL (0.55-1.30); GLOMERULAR FILTRATION RATE > 60.0 (>51); GLUCOSE, FASTING 85 MG/DL (60-100); HDL CHOLESTEROL 86.4 MG/DL (>40); IRON (FE) 85 UG/DL (50-170); LDL CHOLESTEROL 103.6 MG/DL (<100); MAGNESIUM LEVEL 1.6 MG/DL (1.8-2.4); NON-HDL-C 118.6 MG/DL; PERCENT SATURATION 25.3 % (13.2-45.0); POTASSIUM SERUM 4.4 MMOL/L (3.5-5.1); SODIUM LEVEL 142 MMOL/L (136-145); TOTAL IRON BINDING CAPACITY 336 UG/DL (250-425); TOTAL PROTEIN 6.5 G/DL (5.7-8.2); TRIGLYCERIDES LEVEL 75 MG/DL (<150)
[2024-05-03 08:20] LABS: FERRITIN 71.8 NG/ML (7.3-270.7)
[2024-05-03 08:21] LABS: THYROID STIMULATING HORMONE 2.748 uIU/ML (0.55-4.78)
[2024-05-03 08:37] LABS: TOTAL 25(OH) VITAMIN D 54.2 NG/ML (20.0-100.0); VITAMIN B12 LEVEL > 2000 PG/ML (211-911)
== END ==
LOC: M LAB 07:19
PROVIDERS: ATTEND Family Medicine
DX: Z13.220 Encounter for screening for lipoid disorders (principal); D50.9 Iron deficiency anemia, unspecified; D51.9 Vitamin B12 deficiency anemia, unspecified; Z98.84 Bariatric surgery status

== ENCOUNTER → 2024-06-20 | Outpatient (CLI) | payer BC | LOC: M WHC 12:31 | PROVIDERS: ATTEND Family Medicine | DX: N64.4 Mastodynia (principal); Z98.82 Breast implant status; N60.02 Solitary cyst of left breast ==

== ENCOUNTER → 2024-08-11 | Outpatient (REF) | payer BC, OTHER | LOC: M LAB REF 16:54 | PROVIDERS: ATTEND Physician Assistant | DX: M96.843 Postprocedural seroma of a musculoskeletal structure following other procedure (principal) ==